=== PATIENT | female | born 1940 | race Caucasian/White ===

== ENCOUNTER 2016-09-24 07:00 | Inpatient (IN) | payer MEDICARE, BC ==
[~2016-09-24] VITALS: Ht 157.5 cm; Wt 86.9 kg
[2016-11-11 10:21] VITALS: BMI 34.3
[2016-11-12] VITALS (32 sets, daily range): BP systolic 102–198; BP diastolic 54–84; PULSE 73–112; RESP 15–26; Ht 157.5 cm; Wt 86.9 kg
[2016-11-12] MEDS ORDERED: traMADol 50 MG TAB PO ONE (06:00)
[2016-11-12] MEDS ORDERED: TRANEXAMIC ACID 1,000 MG in SOD CHLORIDE 0.9% 100 ML IVPB ONE (06:00)
[2016-11-12] MEDS: LACTATED RINGER'S 1,000 ML IV* SCH (06:00)
[2016-11-12] MEDS ORDERED: BUPIVACAINE 0.5% (SDV) 30 ML, morphine SULFATE (PF) 8 MG, EPINEPHrine 0.3 MG, KETOROLAC... IRR SCH ×7 (06:00)
[2016-11-12] MEDS ORDERED: VANCOMYCIN 1 GM (PMX) 250 ML IVPB ONE (06:00)
[2016-11-12] MEDS ORDERED: DEXAMETHASONE 1 MG TAB PO ONE (06:30)
[2016-11-12] MEDS ORDERED: GABAPENTIN 300 MG CAP PO ONE (06:30)
[2016-11-12] MEDS ORDERED: THROMBIN 5000 UNIT VIAL ONE (06:48)
[2016-11-12] MEDS ORDERED: POLYMYXIN/BACITRACIN 1L IRRIG ONE (06:49)
[2016-11-12] MEDS ORDERED: CA CHLORIDE 10% 10 ML SYRINGE ONE (06:49)
--- NOTE | 2016-11-12 06:50 | HPN ---
Date/Time of Note Date/Time of Note DATE: 11/12/16 TIME: 06:50 Interval H&P Admission Note Pt. seen H&P reviewed: No system changes JEREMIAH CURRAN MD Nov 12, 2016 06:50
[2016-11-12] MEDS ORDERED: BUPIVACAINE 0.5%/EPI (SDV) 10 ML INJ ONE (06:52)
[2016-11-12] MEDS ORDERED: ROPIVACAINE 0.5 % 30 ML VIAL ONE (06:52)
[2016-11-12] MEDS ORDERED: MIDAZOLAM 1 MG/ML 2 ML INJ ONE (06:52)
[2016-11-12] MEDS ORDERED: SUCCINYLCHOLINE CHLORIDE 100 MG/5 ML SYG IV ONE ×2 (07:00→08:45)
[2016-11-12] MEDS ORDERED: INSU100I22 SC (07:02)
[2016-11-12] MEDS ORDERED: TRUJEO (07:02)
[2016-11-12] MEDS ORDERED: ATOR40TA68 PO (07:02)
[2016-11-12] MEDS ORDERED: ZOLP5TAB PO (07:02)
[2016-11-12] MEDS ORDERED: GABA100C14 PO (07:02)
[2016-11-12] MEDS ORDERED: ASPI81TA3 PO (07:02)
[2016-11-12] MEDS ORDERED: DULO60CA59 PO (07:02)
[2016-11-12] MEDS ORDERED: DULO60CA6 PO (07:02)
[2016-11-12] MEDS ORDERED: PRAMIPEXOLE (07:02)
[2016-11-12] MEDS ORDERED: OXYCODONE/ACETAMINOPHEN (5/325) TAB PO PRN ×2 (08:00→09:00)
[2016-11-12] MEDS ORDERED: ONDANSETRON 4 MG INJ IV PRN ×2 (08:00→09:00)
[2016-11-12] MEDS ORDERED: ALBUTEROL 0.083% (NEB) 2.5 MG/3 ML AMP HHN PRN (08:00)
[2016-11-12] MEDS ORDERED: DIPHENHYDRAMINE 50 MG INJ IV PRN ×2 (08:00→09:00)
[2016-11-12] MEDS ORDERED: FENTAnyl 50 MCG/ML VIAL IV PRN ×2 (08:00)
[2016-11-12] MEDS ORDERED: METOCLOPRAMIDE 10 MG INJ IV PRN (08:00)
[2016-11-12] MEDS ORDERED: MEPERIDINE 25 MG INJ IV PRN (08:00)
[2016-11-12] MEDS ORDERED: hydrALAzine 20 MG INJ IV PRN (08:00)
[2016-11-12] MEDS ORDERED: LIDOCAINE 2% (SDV) 5 ML INJ ONE (08:45)
[2016-11-12] MEDS ORDERED: PROPOFOL 20 ML ONE (08:45)
[2016-11-12] MEDS ORDERED: ROCURONIUM 50 MG INJ ONE (08:45)
--- NOTE | 2016-11-12 08:47 | OPR ---
Date/Time of Note Date/Time of Note DATE: 11/12/16 TIME: 08:44 Operative Report Procedure Date: Nov 12, 2016 Preoperative Diagnosis Right shoulder primary arthritis Postoperative Diagnosis 1. Right shoulder primary arthritis 2. Right shoulder massive unrepairable rotator cuff tear Operation Performed Right reverse total shoulder replacement Surgeon: JEREMIAH CURRAN MD Pail Bailer: JAVIER MIKE MD Anesthesia Type: general Estimated Blood Loss: 50 - 100 ml's Transfusion Required: no Complications: no Pt Condition Post Procedure: stable Disposition: PACU Procedure Description COUNTERINTELLIGENCE ANALYST SURGEON: Javier Mike MD was asked to be present for this case at my request. Assistance was necessary as a result of the highly technical nature of this operation. When performing an open total shoulder replacement, it is critical to have a trained bakery assistant who is an expert in handling the extremity and assisting the surgeon in tasks such as suture management and knot- tying techniques as well as implants. This assistance cannot be performed by a photocopier technician, as it is considered an integral part of the procedure and the bakery assistant should be compensated for their time. PROCEDURE IN DETAIL: Following the administration of general anesthesia supplemented with a peripheral nerve block for postoperative pain control, the patient was examined under anesthesia. Examination of the right shoulder revealed very significant stiffness including a forward flexion of about 90 abduction 70 maximal external rotation 0 with severe crepitus. The patient was then placed in the beach chair position. Sterile prep and drape was then undertaken. An extended deltopectoral incision was then carried through the interval exposing the conjoined tendon and retracting it medially. The subscapularis was incised and mobilized. Severe arthritic changes were noted with very large peripheral osteophytes. Multiple loose bodies were removed from the joint. The biceps tendon was released. A humeral head osteotomy was then created in the appropriate degree of version and inclination. The humerus was retracted and the glenoid was exposed. Peripheral osteophytes were removed and a complete capsulectomy performed. The central canal of the glenoid was then entered and prepared for a size standard reverse baseplate. The baseplate was then implanted with 4 peripheral screws. A 38 mm glenoid sphere was then applied. This was a Deput component. The humerus was then reamed and prepared for a 8 mm humeral component with a standard metaphysis. The actual components were implanted with solid fixation. Joint was then taken through a full range of motion after having implanted the actual components with a 9 mm liner. Good stable component was noted throughout. The joint was then thoroughly irrigated, the deep tissues were approximated using #1 suture followed by closure of the deep layer using 2-0 Monocryl. The skin was closed using 4-0 Monocryl suture, and a Prenio dressing. An Ultrasling was then applied. The patient was awakened and transported to the recovery room in stable condition. Estimated blood loss for this procedure was 50 cc. Radiographs will be obtained in the recovery room. JEREMIAH CURRAN MD Nov 12, 2016 08:47
--- NOTE | 2016-11-12 08:48 | PDOCDIS ---
Discharge Instructions DIAGNOSIS Discharge Diagnosis Right shoulder rotator cuff tear arthropathy CONDITION Patient Condition: Good HOME CARE INSTRUCTIONS: Diet Instructions: Regular ACTIVITY: Activity Restrictions: Slowly Increase Activity Keep Limb Elevated Bathing Restrictions: Shower FOLLOW UP/APPOINTMENTS Follow-up Plan 2 weeks SCHOOL/WORK RELEASE May return to School/Work with: With Restrictions School/Work Release Comment: 5 pounds tabletop usage for 6 weeks JEREMIAH CURRAN MD Nov 12, 2016 08:48
[2016-11-12] MEDS ORDERED: VANCOMYCIN 500MG/NS (PMX) 100 ML IVPB SCH (09:00)
[2016-11-12] MEDS ORDERED: morphine 2 MG INJ IV PRN (09:00)
[2016-11-12] MEDS ORDERED: morphine 4 MG/ML VIAL IV PRN (09:00)
[2016-11-12] MEDS ORDERED: ZOLPIDEM 5 MG TAB PO PRN ×2 (09:00)
[2016-11-12] MEDS ORDERED: TRANEXAMIC ACID 1,000 MG in SOD CHLORIDE 0.9% 100 ML IV ONE (09:00)
[2016-11-12] MEDS ORDERED: KETOROLAC 15 MG INJ IV PRN (09:00)
[2016-11-12] MEDS ORDERED: ACETAMINOPHEN 500 MG TAB PO PRN (09:00)
[2016-11-12] MEDS ORDERED: INSULIN REGULAR (1 UNIT/ML) SYRINGE IV PRN (09:00)
[2016-11-12] MEDS ORDERED: MAGNESIUM HYDROXIDE 30ML CUP PO PRN (09:00)
[2016-11-12] MEDS ORDERED: SUGAMMADEX SODIUM 200 MG/2 ML VIAL IV ONE (09:01)
--- NOTE | 2016-11-12 10:17 | RADRPT ---
PROCEDURE: XR Right Shoulder CLINICAL INDICATION: Status post total shoulder TECHNIQUE: An AP and a Y-view were submitted. COMPARISON: None FINDINGS: Osseous structures: A reverse total right shoulder replacement is evident and the components appear well seated. The osseous elements otherwise appear intact. Joint spaces: The glenohumeral joint appears unremarkable. Mild degenerative changes seen about the AC joint. Soft tissues: Postop subcutaneous air is evident. IMPRESSION: 1. Well seated reversed total right shoulder replacement. 2. Mild degenerative change seen about the right AC joint. Physician Юлия Date Time Electronically viewed and signed by Physician Юлия on 11/12/2016 10:17 RH/
[2016-11-12] MEDS: Insulin NOVOLOG SS MODERATE Algorithm (SS with meals and bedtime) SC SCH ×3 (10:58→20:34)
[2016-11-12 12:00] LABS: AADO2 Arterial 159.5 mmHg (7.0-24.0); Allen Test ACCEPTAB; Arterial Base Excess -4.5 mmol/L (-3.0-3); Arterial COHb 0 % (0.0-3.0); Arterial Fraction of Oxyhgb 92.6 % (93.0-99.0); Arterial HCO3 21.6 mmol/L (22.0-26.0); Arterial MetHb 0.4 % (0.0-1.5); Arterial Total Hemglobin 14.2 g/dl (12.0-18.0); MODE NASAL CANNULA
[2016-11-12] MEDS ORDERED: ALBUTEROL/IPRATROPIUM (NEB) 3 ML AMP HHN PRN (12:00)
--- NOTE | 2016-11-12 12:33 | RADRPT ---
PROCEDURE: Chest 1 views. CLINICAL INDICATION: Shortness of breath. TECHNIQUE: AP views of the chest was obtained. COMPARISON: None. FINDINGS: The heart is large. The patient's right hand overlies the right lower chest. The lungs are hypoinfla karissa. Retrocardiac opacity is identified. Elevated right hemidiaphragm with associated atelectasis/co nsolidation of the right middle and lower lobes is identified. Diffuse interstitial prominence is se en in both lungs. The osseous structures appear grossly intact. Right shoulder replacement is noted . IMPRESSION: Cardiomegaly . Hypoinflated lungs. Retrocardiac opacity that may reflect left lower lobe atelectasis or infiltrate combined with small to moderate pleural effusion. Elevated right hemidiaphragm with associated atelectasis/consolidation of the right middle and lower lobes. Diffuse mild interstitial prominence in both lungs. Interstitial prominence could be chronic. RPTAT: AA .Clay Browning MD, Date Time Electronically viewed and signed by .Clay Browning MD, on 11/12/2016 12:33 .P/
[2016-11-12] MEDS: GABAPENTIN 100 MG CAP PO SCH ×3 (13:00→20:32)
[2016-11-12] MEDS: DULOXETINE 30 MG CAP DR PO SCH (13:34)
[2016-11-12] MEDS: SENNA/DOCUSATE NA (8.6MG/50MG) TAB PO SCH ×2 (13:35→20:32)
[2016-11-12] MEDS: DEXAMETHASONE 2 MG TAB PO SCH ×2 (13:35→17:32)
[2016-11-12] MEDS ORDERED: DEXTROSE 50% 50 ML SYRINGE IV PRN ×2 (16:00)
[2016-11-12] MEDS ORDERED: GLUCAGON 1 MG INJ IM PRN (16:00)
[2016-11-12] MEDS ORDERED: GLUCOSE GEL 15 GRAM TUBE PO PRN ×2 (16:00)
[2016-11-12] MEDS ORDERED: GLUCOSE GEL 15 GRAM TUBE BUCCAL PRN (16:00)
[2016-11-12] MEDS: OXYCODONE/ACETAMINOPHEN (5/325) TAB PO PRN (17:43)
[2016-11-12] MEDS: VANCOMYCIN 500MG/NS (PMX) 100 ML IVPB SCH (19:00)
[2016-11-12] MEDS ORDERED: INSULIN ASPART [NOVOLOG] 3 ML PEN SC ONE (21:00)
[2016-11-12] MEDS ORDERED: GABAPENTIN 300 MG CAP PO SCH (21:00)
[2016-11-12] MEDS ORDERED: ATORVASTATIN 10 MG TAB PO SCH (21:00)
[2016-11-12] MEDS ORDERED: INSULIN GLARGINE [LANtus] 3 ML PEN SC SCH (22:00)
[2016-11-13] MEDS: DEXAMETHASONE 2 MG TAB PO SCH ×2 (00:14→06:13)
[2016-11-13] MEDS: OXYCODONE/ACETAMINOPHEN (5/325) TAB PO PRN ×3 (00:28→12:34)
[2016-11-13] MEDS: LACTATED RINGER'S 1,000 ML IV* SCH (05:32)
[2016-11-13] MEDS: VANCOMYCIN 500MG/NS (PMX) 100 ML IVPB SCH (06:13)
--- NOTE | 2016-11-13 07:01 | PN ---
Date/Time of Note Date/Time of Note DATE: 11/13/16 TIME: 06:59 24 hour Interval Summary Patient is awake and alert with minimal complaints. He is breathing comfortably. She does not have her nasal cannula in place. Physical Exam Physical examination: She is neurologically intact. Her wound is clean and dry. There is minimal edema. There is some ecchymoses. Vital Signs Date Time Temp Pulse Resp B/P Pulse Ox O2 Delivery O2 Flow Rate FiO2 11/12/16 22:00 Nasal Cannula 4.0 11/12/16 21:41 97.9 80 20 115/81 93 Intake and Output 11/12/16 11/12/16 11/13/16 15:00 23:00 07:00 Intake Total 500 ml 580 ml 440 ml Output Total 10 ml Balance 490 ml 580 ml 440 ml VTE Prophylaxis VTE Prophylaxis Intervention: anti-embolic stocking Lines/Catheters IV Catheter Type: Saline Lock Yeung in Place: No Results Results 24hrs Laboratory Tests Test 11/12/16 10:00 11/12/16 11:36 11/12/16 11:41 11/12/16 17:31 Bedside Glucose 258 H 247 H 268 H Blood Gas Specimen Source Blood arterial Arterial Blood Date Drawn 11/12/2016 11:45:09 AM Arterial Blood pH (Temp corrected) 7.313 L Arterial Blood pCO2 (Temp correct) 43.6 Arterial Blood pO2 (Temp corrected) 68.3 L Arterial Blood HCO3 21.6 L Arterial Blood Base Excess -4.5 L Arterial Blood Oxygen Saturation 93.0 L Alexis Test ACCEPTAB Arterial Blood Gas Puncture Site Left Radial Arterial Blood Carboxyhemoglobin 0 Arterial Blood Methemoglobin 0.4 Blood Gas A-a O2 Differential 159.5 H Oxyhemoglobin Percent 92.6 L Total Hemoglobin 14.2 Blood Gas Temperature 37.0 Blood Gas Modality NASAL CANNULA FiO2 39.0 Blood Gas Notified Whom JLD Blood Gas Notified Time 11/12/2016 12:00:49 PM Test 11/12/16 20:28 11/12/16 23:51 11/13/16 04:34 Bedside Glucose 384 H 355 H 270 H Assessment/Plan Assessment/Plan Assessment: Status post reverse total shoulder with good result thus far. She appears to have resolved her breathing issues that she had immediately postoperatively. Most of those were anxiety. Plan: She will do physical therapy this morning. She will be discharged following therapy. Medications Medications Home Meds Reported Medications Duloxetine Hcl* (Duloxetine Hcl*) 60 Mg Capsule.dr, 60 MG PO DAILY, #30 CAP 11/12/16 [pranpexole] No Conflict Check, 0.125 QHS 11/12/16 [trujeo] No Conflict Check, 300 11/12/16 Insulin Aspart (Novolog FlexPen) 100 Unit/1 Ml Insuln.pen, 100 SC SLIDING SCALE AC, EA 11/12/16 Gabapentin* (Gabapentin*) 100 Mg Capsule, 100 MG PO TID, #90 CAP 11/12/16 Duloxetine Hcl* (Cymbalta*) 60 Mg Capsule.dr, 60 MG PO DAILY, CAP 11/12/16 Atorvastatin* (Atorvastatin*) 40 Mg Tablet, 10 MG PO QHS, #30 TAB 11/12/16 Aspirin* (Aspirin* Chew) 81 Mg Tab.chew, 81 MG PO DAILY, TAB.CHEW 11/12/16 Zolpidem Tartrate* (Ambien*) 5 Mg Tablet, 5 MG PO QHS Y for INSOMNIA, #30 TAB 11/12/16 JEREMIAH CURRAN MD Nov 13, 2016 07:01
--- NOTE | 2016-11-13 07:02 | DS ---
Date/Time of Note Date/Time of Note DATE: 11/13/16 TIME: 07:01 Discharge Summary Admission/Discharge Info Admit Date/Time Nov 12, 2016 at 05:53 Discharge Date/Time November 13, 2016 following physical therapy Discharge Diagnosis Right shoulder rotator cuff tear arthropathy Patient Condition: Good Procedures Right reverse total shoulder replacement Hx of Present Illness Pain and stiffness in the right shoulder. Hospital Course Patient was admitted and underwent an uncomplicated procedure. Approximately 1 hour postoperatively, she developed some acute anxiety with difficulty breathing. A rapid response team was called. Assessment later revealed no significant abnormalities. On postoperative day #1 she is awake, alert and comfortably breathing. She is in minimal pain. She was then taken to physical therapy. She was discharged following the physical therapy area Home Meds Reported Medications Duloxetine Hcl* (Duloxetine Hcl*) 60 Mg Capsule.dr, 60 MG PO DAILY, #30 CAP 11/12/16 [pranpexole] No Conflict Check, 0.125 QHS 11/12/16 [trujeo] No Conflict Check, 300 11/12/16 Insulin Aspart (Novolog FlexPen) 100 Unit/1 Ml Insuln.pen, 100 SC SLIDING SCALE AC, EA 11/12/16 Gabapentin* (Gabapentin*) 100 Mg Capsule, 100 MG PO TID, #90 CAP 11/12/16 Duloxetine Hcl* (Cymbalta*) 60 Mg Capsule.dr, 60 MG PO DAILY, CAP 11/12/16 Atorvastatin* (Atorvastatin*) 40 Mg Tablet, 10 MG PO QHS, #30 TAB 11/12/16 Aspirin* (Aspirin* Chew) 81 Mg Tab.chew, 81 MG PO DAILY, TAB.CHEW 11/12/16 Zolpidem Tartrate* (Ambien*) 5 Mg Tablet, 5 MG PO QHS Y for INSOMNIA, #30 TAB 11/12/16 Follow-up Plan 2 weeks Primary Care Provider Not On Staff Doctor Pending Labs Laboratory Tests Test 11/12/16 10:00 11/12/16 11:36 11/12/16 11:41 11/12/16 17:31 Bedside Glucose 258mg/dL (70-220) 247mg/dL (70-220) 268mg/dL (70-220) Blood Gas Specimen Source Blood arterial Arterial Blood Date Drawn 11/12/2016 11:45:09 AM Arterial Blood pH (Temp corrected) 7.313 (7.350-7.450) Arterial Blood pCO2 (Temp correct) 43.6mmhg (35-45) Arterial Blood pO2 (Temp corrected) 68.3mmHG (80-90.0) Arterial Blood HCO3 21.6mmol/L (22.0-26.0) Arterial Blood Base Excess -4.5mmol/L (-3.0-3) Arterial Blood Oxygen Saturation 93.0mmHG (95.0-100.0) Alexis Test ACCEPTAB Arterial Blood Gas Puncture Site Left Radial Arterial Blood Carboxyhemoglobin 0% (0.0-3.0) Arterial Blood Methemoglobin 0.4% (0.0-1.5) Blood Gas A-a O2 Differential 159.5mmHg (7.0-24.0) Oxyhemoglobin Percent 92.6% (93.0-99.0) Total Hemoglobin 14.2g/dl (12.0-18.0) Blood Gas Temperature 37.0C Blood Gas Modality NASAL CANNULA FiO2 39.0% Blood Gas Notified Whom JLD Blood Gas Notified Time 11/12/2016 12:00:49 PM Test 11/12/16 20:28 11/12/16 23:51 11/13/16 04:34 Bedside Glucose 384mg/dL (70-220) 355mg/dL (70-220) 270mg/dL (70-220) JEREMIAH CURRAN MD Nov 13, 2016 07:02
[2016-11-13 07:58] VITALS: BP 138/68; RESP 18
[2016-11-13] MEDS: Insulin NOVOLOG SS MODERATE Algorithm (SS with meals and bedtime) SC SCH ×2 (09:00→12:45)
[2016-11-13] MEDS ORDERED: ASPIRIN 81 MG TAB PO SCH (09:00)
[2016-11-13] MEDS: SENNA/DOCUSATE NA (8.6MG/50MG) TAB PO SCH (09:01)
[2016-11-13] MEDS: GABAPENTIN 100 MG CAP PO SCH ×2 (09:01→12:33)
[2016-11-13] MEDS: DULOXETINE 30 MG CAP DR PO SCH (09:01)
[2016-11-13 14:45] VITALS: BP 135/64; RESP 17
--- NOTE | 2016-11-13 20:16 | RADRPT ---
Vent Rate: 85 bpm RR Interval: 0 msec OK Interval: 196 msec QRS Duration: 112 msec QT Interval: 402 msec QTC Interval: 478 msec P-R-T [place]: 31 - -54 - 50 degrees Normal sinus rhythm Left anterior fascicular block Possible Anterior infarct , age undetermined Abnormal ECG Electronically Signed By: Rafat Rosario [id number]
== END 2016-11-13 16:41 | disposition home or self-care (01) | DRG 483 ==
LOC: REC 11-12 05:53 → MS1 11-12 10:30
PROVIDERS: ADMIT Orthopaedic Surgery; ATTEND Orthopaedic Surgery
PROC: 0RRJ00Z Replacement of Right Shoulder Joint with Reverse Ball and Socket Synthetic Substitute, Open Approach (ICD-10-PCS; principal; 2016-11-12 07:00)
DX: M19.011 Primary osteoarthritis, right shoulder (principal); F41.9 Anxiety disorder, unspecified; M75.101 Unspecified rotator cuff tear or rupture of right shoulder, not specified as traumatic; R06.4 Hyperventilation
CPT/HCPCS: 36600; 71010; 82803; 82962; 86999; 88304; 93005; 94640; 94664; 97110; 97167; C1776; J0171; J0735; J1815; J1885; J2250; J2274; J2795; J3010; J3370; J7120; J7999

== ENCOUNTER 2017-02-04 10:01 | Inpatient (IN) | payer MEDICARE, BC ==
[2017-02-04] VITALS (42 sets, daily range): BP systolic 97–178; BP diastolic 53–132; PULSE 87–124; RESP 14–39; Ht 157.5 cm; Wt 84.2 kg
[~2017-02-04] VITALS: Ht 157.5 cm; Wt 84.2 kg
--- NOTE | 2017-02-04 06:13 | PREOPHP ---
DATE OF ADMISSION: 02/04/2017 STAFF PHYSICIAN DOING SURGERY FOR PATIENT TOMORROW: Dr. Jeremiah Curran DATE OF SURGERY: 02/04/2017 LOCATION: Surgery will be performed at [facility] HISTORY OF PRESENT ILLNESS: The patient is a 76-year-old woman with a history of type 2 diabetes, h ypertension, hyperlipidemia, fibromyalgia, osteoarthritis and neuropathy, who is now scheduled for r evision, right shoulder surgery with Dr. Jeremiah Curran at [facility] on 08/2016. Patient has had prior right shoulder surgery, recently she has had fairly severe pain and recurrent dislocations of her shoulder, according to the patient. She has been very uncomfortable a nd recently saw Dr. Curran, who has urgently scheduled her for the surgical revision tomorrow, whic h will be done open. She has already had cardiology and pulmonary clearance, including EKG and ches t x-ray. Unfortunately, she has had poorly controlled diabetes with her blood sugars mainly running 180 to 280, and she has not been compliant with her insulin regimen. She has been taking just 30 u nits of her long-acting insulin and 10 to 12 units twice a day of her Humalog. She has had occasion al polyuria and polydipsia, but no hypoglycemia. She denies earache, sore throat, productive cough, nausea, vomiting, abdominal pain, fever and chills, focal weakness and numbness. PAST MEDICAL HISTORY: 1. Type 2 diabetes mellitus. 2. Hypertension. 3. Hyperlipidemia. 4. Fibromyalgia. 5. Osteoarthritis. 6. History of anemia. 7. Neuropathy. 8. History of low back pain. 9. Previous right shoulder surgery. CURRENT MEDICATIONS: 1. Atorvastatin 10 mg daily. 2. Duloxetine 60 mg daily. 3. Gabapentin 100 mg, 4 tablets at bedtime, each tablet 100 mg. 4. Metformin 500 mg, 2 twice a day. 5. Verapamil extended release 180 mg twice a day. 6. Januvia 100 mg daily. 7. Zolpidem 10 mg, a half to 1 at bedtime as needed. 8. Toujeo insulin 36 units at bedtime. 9. Mirapex 0.125 mg at bedtime. 10. Oxycodone 10 mg b.i.d. as needed for severe pain. ALLERGIES: PENICILLIN. HABITS: Cigarettes: She is a former smoker, but is not smoking currently. Alcohol: None. FAMILY HISTORY: Noncontributory. SOCIAL HISTORY: She lives in [place]. REVIEW OF SYSTEMS: CONSTITUTIONAL: She denies weight change, fevers, chills and sweats. SKIN: She denies hair and nail changes, new lesions, pruritus and rash. EYES: She denies vision change, eye pain or redness. HEENT: She denies earache, hearing change, sore throat, hoarseness, sinus pain and dysphagia. RESPIRATORY: She denies wheezing, cough, shortness of breath and hemoptysis. CARDIOVASCULAR: She denies chest pain, palpitations, orthopnea and PND. GASTROINTESTINAL: She denies constipation, diarrhea, reflux symptoms, hematochezia, melena, nausea and vomiting. GENITOURINARY: She denies dysuria and hematuria, and urinary urgency and frequency. MUSCULOSKELETAL: She has the right shoulder pain. She denies current back pain and ankle swelling. PSYCHIATRIC: She denies panic attacks. ENDOCRINE: She denies heat and cold intolerance. NEUROLOGIC: She has some decreased lower extremity sensation. She denies dizziness, headache, seiz ures and tremor. HEMATOLOGIC: She denies enlarged lymph nodes and bleeding problems. PHYSICAL EXAMINATION: GENERAL: She is in no acute distress. VITAL SIGNS: Blood pressure 138/64, pulse 78, respirations 16, temperature 98.4. Height 62 inches, weight 185.6 lbs. HEENT: Normocephalic, atraumatic. No facial tenderness. Pupils reactive to light. Extraocular mo vements intact. Tympanic membranes and ear canals normal. Nose normal. Throat clear. NECK: Supple without adenopathy or thyromegaly. No carotid bruits. LUNGS: Clear. HEART: Regular rate and rhythm without murmurs, rubs or gallops. BACK: No tenderness. ABDOMEN: Soft, nontender without mass or hepatosplenomegaly. Bowel sounds are normal. BREASTS: Done by her neurology epilepsy physician and not repeated today. PELVIC: Done by her neurology epilepsy physician and not repeated today. RECTAL: Done by her neurology epilepsy physician and not repeated today. EXTREMITIES: Trace lower extremity edema. There is some right shoulder tenderness and decreased ra nge of motion. Pulses are full. SKIN: Shows no rashes or petechiae. NEUROLOGIC: Nonfocal except for decreased distal lower extremity sensation. IMPRESSION: 1. Right shoulder pain with apparent recurrent dislocations, now scheduled for revision surgery wit h Dr. Curran at [facility] on 02/04/2017. 2. Type 2 diabetes mellitus with poor control. 3. Hyperlipidemia. 4. Hypertension. 5. Osteoarthritis. 6. Insomnia. 7. Fibromyalgia. 8. History of low back pain and intervertebral disc disease. 9. Vitamin D deficiency. 10. History of right shoulder surgery. 11. Nonfasting Accu-Chek currently is 272. PLAN: The patient had labwork earlier today, which showed glucose of 278 and carbon dioxide of 32, otherwise it was essentially normal. The patient is at higher risk of infections and poor healing, but because of the urgent nature of the surgery, she is medically cleared for the scheduled procedur e, and she is aware of the increased risks and chooses to accept them. Patient should have her bloo d sugars monitored at the hospital and be treated with both long-acting insulin and a short-acting i nsulin sliding scale. I would like to thank Dr. Curran for allowing me to participate in the preoperative medical evaluat ion of this patient. DR. YOSI MORAN DICTATING FOR DR. JEREMIAH CURRAN Dictated By: JEREMIAH CURRAN MD CG/NTS Conf#: [id number] DID#: [id number] CC: JEREMIAH CURRAN MD; YOSI MORAN MD;*[facility]*
[~2017-02-04 10:01] MED LIST: ASPI81TA3 PO; ATOR40TA68 PO; BUPIVACAINE 0.5% (SDV) 30 ML, morphine SULFATE (PF) 8 MG, EPINEPHrine 0.3 MG, KETOROLAC... IRR SCH; DEXAMETHASONE 1 MG TAB PO SCH; DULO60CA59 PO; DULO60CA6 PO; GABA100C14 PO; GABAPENTIN 300 MG CAP PO SCH; INSU100I22 SC; PRAMIPEXOLE; TRANEXAMIC ACID 1,000 MG in SOD CHLORIDE 0.9% 100 ML IVPB SCH; TRUJEO; VANCOMYCIN 1 GM (PMX) 250 ML IVPB SCH; ZOLP5TAB PO
--- NOTE | 2017-02-04 10:37 | HPN ---
Date/Time of Note Date/Time of Note DATE: 02/04/17 TIME: 10:36 Interval H&P Admission Note Pt. seen H&P reviewed: No system changes JEREMIAH CURRAN MD Feb 04, 2017 10:37
[2017-02-04] MEDS ORDERED: ZOLP10TA5 PO (10:45)
[2017-02-04] MEDS ORDERED: ATOR10TA65 PO (10:47)
[2017-02-04] MEDS ORDERED: INSU300I SQ (10:49)
[2017-02-04] MEDS ORDERED: NOVO3I SC (10:50)
[2017-02-04] MEDS ORDERED: OXYC-203 PO (10:51)
[2017-02-04] MEDS ORDERED: VERA180T6 PO (10:51)
[2017-02-04] MEDS ORDERED: GABA100C14 PO (10:52)
[2017-02-04] MEDS ORDERED: PRAM0.12 PO (10:53)
[2017-02-04] MEDS ORDERED: CETI-240 PO (10:53)
[2017-02-04] MEDS ORDERED: CHOL20002 PO (10:54)
[2017-02-04] MEDS ORDERED: CYAN500T46 PO (10:54)
[2017-02-04] MEDS ORDERED: LIDOCAINE 2% (SDV) 5 ML INJ ONE (11:12)
[2017-02-04] MEDS ORDERED: PROPOFOL 20 ML ONE ×3 (11:12→15:15)
[2017-02-04] MEDS ORDERED: ROPIVACAINE 0.5 % 30 ML VIAL ONE (11:13)
[2017-02-04] MEDS ORDERED: MIDAZOLAM 1 MG/ML 2 ML INJ ONE ×2 (11:14→14:36)
[2017-02-04] MEDS ORDERED: ONDANSETRON 4 MG INJ ONE (11:14)
[2017-02-04] MEDS ORDERED: METOCLOPRAMIDE 10 MG INJ ONE (11:14)
[2017-02-04] MEDS ORDERED: POLYMYXIN/BACITRACIN 1L IRRIG ONE (12:13)
[2017-02-04] MEDS ORDERED: THROMBIN 5000 UNIT VIAL ONE (12:13)
[2017-02-04] MEDS ORDERED: CA CHLORIDE 10% 10 ML SYRINGE ONE (12:13)
[2017-02-04] MEDS ORDERED: DEXAMETHASONE 4 MG/ML 1 ML INJ ONE (13:57)
--- NOTE | 2017-02-04 14:10 | OPR ---
Date/Time of Note Date/Time of Note DATE: 02/04/17 TIME: 14:06 Operative Report Procedure Date: Feb 04, 2017 Preoperative Diagnosis Dislocated right reverse total shoulder Postoperative Diagnosis Dislocated right reverse total shoulder Operation/Procedure Performed Revision of humeral component, right reverse total shoulder Surgeon see signature line Industry Segment Specialist Willy Sellers MD Anesthesia Type: general Estimated Blood Loss: 50 - 100 ml's Transfusion none Specimen None Grafts/Implants none Complications none Pt Condition Post Procedure: stable Disposition: PACU Indications The patient has a history of having undergone a reverse total shoulder replacement with cerebral dislocation episodes after having fallen out of bed multiple times immediately postoperatively. Procedure Description DRY HOUSE ATTENDANT SURGEON: Willy Sellers was asked to be present for this case at my request. Assistance was necessary as a result of the highly technical nature of this operation. When performing an open total shoulder replacement, it is critical to have a trained customer assistant who is an expert in handling the extremity and assisting the surgeon in tasks such as manipulation of the arm, protection of the neurovascular structures and positioning the implants. This assistance cannot be performed by a civil technician, as it is considered an integral part of the procedure and the customer assistant should be compensated for their time. PROCEDURE IN DETAIL: Following the administration of general anesthesia supplemented with a peripheral nerve block for postoperative pain control, the patient was examined under anesthesia. Examination revealed that she was very easily dislocated anterosuperiorly and easily reducible. The prior deltopectoral incision was then opened once again and the deltoid retracted laterally. The deltoid was elevated and the humeral component dislocated. Evaluation of the humeral component revealed that there was no evident loosening or malrotation. The liner was removed and subsequently a trial reduction was then performed with multiple increasing elements. The final components included a 9 mm metal investor relations associate as well as a 9 mm liner. The actual components were implanted with solid fixation. The arm was taken through full range of motion with no evident instability. The joint was then thoroughly irrigated, the deep tissues were approximated using #1 suture followed by closure of the deep layer using 2-0 Monocryl. The skin was closed using 4-0 Monocryl suture, and a Prenio dressing. An Ultrasling was then applied. The patient was awakened and transported to the recovery room in stable condition. Estimated blood loss for this procedure was 100 cc. Radiographs will be obtained in the recovery room. JEREMIAH CURRAN MD Feb 04, 2017 14:10
--- NOTE | 2017-02-04 14:11 | PDOCDIS ---
Discharge Instructions DIAGNOSIS Discharge Diagnosis Failed right reverse total shoulder replacement CONDITION Patient Condition: Good HOME CARE INSTRUCTIONS: Diet Instructions: Regular ACTIVITY: Activity Restrictions: No Restrictions Keep Limb Elevated FOLLOW UP/APPOINTMENTS Follow-up Plan 2 weeks SCHOOL/WORK RELEASE May return to School/Work with: With Restrictions School/Work Release Comment: 5 pounds tabletop usage for 6 weeks JEREMIAH CURRAN MD Feb 04, 2017 14:11
[2017-02-04] MEDS ORDERED: ALBUTEROL 0.083% (NEB) 2.5 MG/3 ML AMP ONE (14:26)
[2017-02-04] MEDS ORDERED: KETOROLAC 15 MG INJ IV PRN (14:30)
[2017-02-04] MEDS ORDERED: ONDANSETRON 4 MG INJ IV PRN ×2 (14:30→15:00)
[2017-02-04] MEDS ORDERED: MAGNESIUM HYDROXIDE 30ML CUP PO PRN (14:30)
[2017-02-04] MEDS ORDERED: ACETAMINOPHEN 500 MG TAB PO PRN (14:30)
[2017-02-04] MEDS ORDERED: TRANEXAMIC ACID 1,000 MG in SOD CHLORIDE 0.9% 100 ML IV ONE (14:30)
[2017-02-04] MEDS ORDERED: morphine 2 MG INJ IV PRN (14:30)
[2017-02-04] MEDS ORDERED: DIPHENHYDRAMINE 50 MG INJ IV PRN ×2 (14:30→15:00)
[2017-02-04] MEDS ORDERED: LORAZEPAM 2 MG INJ ONE (14:45)
[2017-02-04] MEDS ORDERED: SUCCINYLCHOLINE CHLORIDE 100 MG/5 ML SYG IV ONE (14:56)
[2017-02-04] MEDS ORDERED: HYDROmorphONE (0.2 MG/ML) 10ML SYG IV PRN ×3 (15:00)
[2017-02-04] MEDS ORDERED: MEPERIDINE 25 MG INJ IV PRN (15:00)
[2017-02-04] MEDS ORDERED: FENTAnyl 50 MCG/ML VIAL IV PRN ×3 (15:00)
[2017-02-04] MEDS ORDERED: EPHEDrine SULFATE 50 MG/5 ML SYG IV PRN (15:00)
[2017-02-04] MEDS ORDERED: ALBUTEROL 0.083% (NEB) 2.5 MG/3 ML AMP HHN PRN (15:00)
[2017-02-04] MEDS ORDERED: hydrALAzine 20 MG INJ IV PRN (15:00)
[2017-02-04] MEDS ORDERED: LORAZEPAM 2 MG INJ IV ONE (15:00)
[2017-02-04] MEDS ORDERED: MIDAZOLAM 1 MG/ML 2 ML INJ IV PRN (15:00)
[2017-02-04] MEDS ORDERED: LABETALOL HCL 20MG INJ IV PRN (15:00)
--- NOTE | 2017-02-04 15:24 | RADRPT ---
PROCEDURE: XR right shoulder. CLINICAL INDICATION: Shoulder pain, replacement TECHNIQUE: Single AP view of the shoulder was performed. COMPARISON: 11/12/2016 FINDINGS: The patient is again noted to be status post reverse total shoulder arthroplasty. The prosthesis samantha ears to be anatomically aligned and well seated. There are normal joints without evidence of arthritis or dislocation. The soft tissues are unremarkable. IMPRESSION: Well seated reverse total shoulder arthroplasty. RPTAT:AAJJ Physician Meche Date Time Electronically viewed and signed by Israel Goss Physician on 02/04/2017 15:24 HEBERT/
--- NOTE | 2017-02-04 15:26 | OPPN ---
Date/Time of Note Date/Time of Note DATE: 02/04/17 TIME: 15:13 Event Note The patient had history of respiratory distress postoperatively in the last surgery. At the end of this surgery, breathing treatment was given immediately at the arrival to the PACU. However, the patient still developed respiratory distress. She was breathing heavily and became restless. To prevent the patient from respiratory failure, she was induced with 100mg of propofol and 100 mg of succinylcholine, and intubated with 7.0 ETT. Artificial ventilation was initiated. The patient became stable after the management. ANUM KNIGHT MD Feb 04, 2017 15:25
[2017-02-04] MEDS: PROPOFOL 100 ML IV SCH ×2 (16:00→22:41)
[2017-02-04] MEDS ORDERED: MIDAZOLAM (DRIP) 50 mg/50 mL 50 ML IV SCH (16:00)
--- NOTE | 2017-02-04 16:07 | RADRPT ---
PROCEDURE: Chest x-ray CLINICAL INDICATION: Intubation TECHNIQUE: Chest single view COMPARISON: 11/12/2016 FINDINGS: There is interval placement of endotracheal tube which terminates 2.5 cm above the emmie. Stable mi ld cardiomegaly and atherosclerotic aortic calcification is seen. Pulmonary vessels are normal in ca liber. There are low lung volumes with linear bibasilar atelectasis. No large pleural fluid is seen. There is right shoulder prosthesis. IMPRESSION: 1. Interval placement of endotracheal tube which terminates 2.5 cm above the emmie. 2. Stable mild cardiomegaly and atherosclerotic aortic calcification. 3. Low lung volumes with by bilateral lower lobe atelectasis RPTAT: HH .Alfredo Cote MD, MD Date Time Electronically viewed and signed by .Alfredo Cote MD, on 02/04/2017 16:07 .W/
[2017-02-04] MEDS: VANCOMYCIN 500MG/NS (PMX) 100 ML IVPB SCH (16:54)
[2017-02-04] MEDS ORDERED: DEXTROSE 50% 50 ML SYRINGE IV PRN ×2 (17:30)
[2017-02-04] MEDS ORDERED: INSULIN ASPART [NOVOLOG] 3 ML PEN SC SCH (17:35)
[2017-02-04] MEDS ORDERED: DEXAMETHASONE 2 MG TAB PO SCH (18:00)
[2017-02-04] MEDS: D5W-0.45 NACL + KCL 20 MEQ 1,000 ML IV SCH (18:09)
--- NOTE | 2017-02-04 18:15 | CONS ---
Date/Time of Note Date/Time of Note DATE: 02/04/17 TIME: 17:58 Assessment/Plan Assessment/Plan Problems: (1) Status post reverse arthroplasty of right shoulder Status: Acute Comment: Agitated post-operatively (see below). Will attempt to keep pt. calm and sedated so as to keep shoulder immobilized. Fall precautions. Pain control. Will follow with you. (2) Type 2 diabetes mellitus with hyperglycemia Status: Chronic Comment: Pt. intubated in ICU. Therefore will treat with insulin drip for now. Transition to sq insulin later. Check A1c. Pt. will need larger insulin doses while receiving dexamethasone first 24 hours. Qualifiers: Qualified Code: E11.65 - Type 2 diabetes mellitus with hyperglycemia, with long-term current use of insulin (3) Essential (primary) hypertension Status: Chronic Comment: Cont. calcium channel blockade (4) Hyperlipidemia Status: Chronic Comment: Cont. atorvastatin (5) Allergic rhinitis Status: Chronic Comment: cont. antihistamine (6) Chronic pain disorder Status: Chronic Comment: Cont. gabapentin, duloxetine. Pt. receiving IV narcotics at this time and will be weaned to oral narcotics when stable (7) Restless leg syndrome Status: Chronic Comment: Cont. mirapex (8) Fibromyalgia Status: Chronic Comment: Cont. duloxetine and gabapentin (9) Restlessness and agitation Status: Acute Comment: Possible reaction to sedation or narcotics. Pt. has had this with multiple surgical procedures in the past. Will monitor. (10) Mechanical complic of internal orthopedic device, implant or graft Status: Resolved Cont'd Hospitalization Reason: Pt. to stay in ICU until sedation and intubation no longer required Consultation Date/Type/Reason Admit Date/Time Feb 04, 2017 at 10:01 Date of Consultation: Feb 04, 2017 Type of Consultation: Medicine-Endocrinology Reason for Consultation Medical/Diabetes management Referring Provider: JEREMIAH CURRAN MD Hx of Present Illness 76 y/o C F w/ h/o T2DM w/ neuropathy, HTN, hyperlipidemia, chronic pain, fibromyalgia, allergic rhinitis, restless leg syndrome, and OA s/p total shoulder replacement due to unreducible dislocation. However, post-operatively pt. had significant agitation, and fell from bed more than once. It is assumed that one of these caused failure of replacement and pt. has been having pain and recurrent dislocations since then. Pt. was scheduled for urgent revision of this and is now POD#0 from her procedure. Agitated and w/ resp. distress post-op and required ongoing intubation and breathing treatments. Subjective hx not possible: pt non-verbal, pt critical status Past Medical History Medical History: diabetes, high cholesterol, hypertension, other (allergic rhinitis, chronic pain, fibromyalgia, OA) Past Surgical History Past Surgical Hx: other (R total shoulder, B Total Knee, fundoplication, MARIAN, L ulnar n. decompression) Family History Significant Family History: heart disease (father, mother), hypertension ( father), vascular disease (CVA in father and uncle) Social History b. [employer], raised [place] until age 9 y, then moved to [facility], some college, ret'd real estate office supervisor, , 2 children Alcohol Use: none Smoking Status: Former smoker (1 ppd x 10-12 y, quit 45 y. ago) Drug Use: none Exam/Review of Systems Vital Signs Vitals Vital Signs Date Time Temp Pulse Resp B/P Pulse Ox O2 Delivery O2 Flow Rate FiO2 02/04/17 17:36 119 26 99 40 02/04/17 17:15 152/101 Mechanical Ventilator 02/04/17 15:08 10.0 02/04/17 14:39 98.6 Exam Constitutional: distress (agitated), non-verbal, obese, No alert, No oriented Eyes: EOMI, PERRL, nl conjunctiva, nl lids, nl sclera ENMT: intubated Neck: non-tender, supple, No bruits, No masses, No thyromegaly Respiratory: clear to auscultation, normal air movement Cardiovascular: nl pulses, regular rate and rhythm, No edema, No murmurs/extra sounds, No rub Gastrointestinal: bowel sounds, nl liver, spleen, non-tender, soft, No mass, No rebound or guarding Musculoskeletal: No nl extremities to inspection (R shoulder w/ fresh wound) Extremities: normal pulses, No clubbing, No cyanosis, No edema Neurological: confused Results Results 24 hrs Laboratory Tests Test 02/04/17 10:50 Bedside Glucose 180 Medications Medications Current Medications Vancomycin HCl (Vancocin) 100 ml @ 100 mls/hr Q12H IVPB Last administered on 02/04/17t 16:54; Admin Dose 100 MLS/HR; Start 02/04/17 at 16:30; Stop 02/05/17 at 05:29 Senna/Docusate Sodium (Senokot-S) 1 tab BID PO ; Start 02/04/17 at 21:00 Simethicone (Mylicon) 80 mg TID PRN PO DISTENSION/GAS/BLOATING; Start 02/04/17 at 14:30 Magnesium Hydroxide (Milk Of Mag) 30 ml BID PRN PO CONSTIPATION; Start at 14:30 Acetaminophen (Tylenol Tab) 1,000 mg Q4H PRN PO TEMP GREATER THAN 100.4F; Start 02/04/17 at 14:30 Oxycodone/ Acetaminophen (Percocet (5/ 325)) 1 tab Q4H PRN PO PAIN LEVEL 1-5; Start 02/04/17 at 14:30 Oxycodone/ Acetaminophen (Percocet (5/ 325)) 2 tab Q4H PRN PO PAIN LEVEL 6-10; Start 02/04/17 at 14:30 Morphine Sulfate (morphine) 2 mg Q2H PRN IV PAIN LEVEL 1-5; Start 02/04/17 at 14:30 Morphine Sulfate (morphine) 4 mg Q4H PRN IV PAIN LEVEL 6-10; Start 02/04/17 at 14:30 Ketorolac Tromethamine (Toradol) 15 mg Q6H PRN IV PAIN; Start 02/04/17 at 14:30 ; Stop 02/07/17 at 14:29 Ondansetron HCl (Zofran Inj) 4 mg Q6H PRN IV NAUSEA AND/OR VOMITING; Start 02/04/17 at 14:30 Diphenhydramine HCl 25 mg 25 mg Q6H PRN IV PRURITUS; Start 02/04/17 at 14:30 Propofol (Diprivan) 100 ml @ 2.526 mls/ hr Q12H IV Last administered on t 16:00; Admin Dose 25.26 MLS/HR; Start 02/04/17 at 15:30 Aspirin (Aspirin) 81 mg DAILY NGT ; Start 02/05/17 at 09:00 Atorvastatin Calcium (Lipitor) 10 mg QHS NGT ; Start 02/04/17 at 21:00 Dexamethasone (Decadron) 2 mg Q6 NGT ; Start 02/04/17 at 18:00; Stop 12/8/17 at 12:01 Duloxetine HCl (Cymbalta) 60 mg DAILY NGT ; Start 02/05/17 at 09:00 Gabapentin (Neurontin) 200 mg BID NGT ; Start 02/04/17 at 21:00 Loratadine (Claritin) 10 mg DAILY NGT ; Start 02/05/17 at 09:00 Pramipexole (Mirapex) 0.125 mg HS NGT ; Start 02/04/17 at 17:30 Diltiazem HCl 60 mg 60 mg Q8 NGT ; Start 02/04/17 at 17:30 Potassium Chloride/Dextrose/ Sod Cl (D5-1/2ns + KCl 20 Meq) 1,000 ml @ 100 mls/ hr Q10H IV ; Start 02/04/17 at 17:30 Diagnostic Test (Pha) (Accu-Chek) 1 ea Q1H XX ; Start 02/04/17 at 17:30 Dextrose (D50w Syringe) 25 ml Q15M PRN IV Till BS 80 mg/dL or above x2; Start 02/04/17 at 17:30 Dextrose (D50w Syringe) 50 ml Q15M PRN IV Till BS 80 mg/dL or above x2; Start 02/04/17 at 17:30 CARLY JIN MD Feb 04, 2017 18:13
[2017-02-04] MEDS: ACCU-CHEK XX SCH ×6 (18:30→23:44)
[2017-02-04] MEDS: DILTIAZEM 60 MG TAB NGT SCH ×2 (18:46→23:01)
[2017-02-04] MEDS: DEXAMETHASONE 2 MG TAB NGT SCH (18:46)
[2017-02-04] MEDS: PRAMIPEXOLE 0.125 MG TAB NGT SCH ×2 (18:46→21:15)
[2017-02-04] MEDS: INSULIN HUMAN REGULAR 100 UNIT in SOD CHLORIDE 0.9% 99 ML IV SCH (19:41)
[2017-02-04] MEDS: morphine 4 MG/ML VIAL IV PRN (19:56)
[2017-02-04] MEDS ORDERED: ATORVASTATIN 10 MG TAB PO SCH (21:00)
[2017-02-04] MEDS ORDERED: GABAPENTIN 300 MG CAP PO SCH (21:00)
[2017-02-04] MEDS ORDERED: [UNRECOGNIZED DRUG - OTHER] SQ SCH (21:00)
[2017-02-04] MEDS ORDERED: GABAPENTIN 100 MG CAP PO SCH (21:00)
[2017-02-04] MEDS ORDERED: VERAPAMIL (SR) 180 MG TAB PO SCH (21:00)
[2017-02-04] MEDS ORDERED: PRAMIPEXOLE 0.125 MG TAB PO SCH (21:00)
[2017-02-04] MEDS ORDERED: INSULIN GLARGINE HUM REC ANLOG 34 UNIT SQ SCH (21:00)
[2017-02-04] MEDS ORDERED: ATORVASTATIN 10 MG TAB NGT SCH (21:00)
[2017-02-04] MEDS: GABAPENTIN 100 MG CAP NGT SCH (21:15)
[2017-02-04] MEDS: SENNA/DOCUSATE NA (8.6MG/50MG) TAB PO SCH (21:15)
[2017-02-04 21:38] LABS: AADO2 Arterial 143.4 mmHg (7.0-24.0); Allen Test ACCEPTAB; Arterial Base Excess -2.8 mmol/L (-3.0-3); Arterial COHb 0.3 % (0.0-3.0); Arterial Fraction of Oxyhgb 96.4 % (93.0-99.0); Arterial HCO3 22.2 mmol/L (22.0-26.0); Arterial MetHb 0.1 % (0.0-1.5); Arterial Total Hemglobin 12.8 g/dl (12.0-18.0); Blood Gas Mean Airway Pressure 9.8; MODE VENT - AC
[2017-02-05] VITALS (47 sets, daily range): BP systolic 107–165; BP diastolic 54–106; PULSE 70–103; RESP 14–27
[2017-02-05] MEDS: ACCU-CHEK XX SCH ×21 (00:38→23:00)
[2017-02-05] MEDS: DEXAMETHASONE 2 MG TAB NGT SCH ×3 (00:42→12:15)
[2017-02-05] MEDS: morphine 4 MG/ML VIAL IV PRN (02:05)
[2017-02-05] MEDS: PROPOFOL 100 ML IV SCH ×2 (02:58→06:53)
[2017-02-05] MEDS: D5W-0.45 NACL + KCL 20 MEQ 1,000 ML IV SCH ×3 (04:05→23:30)
[2017-02-05] MEDS: VANCOMYCIN 500MG/NS (PMX) 100 ML IVPB SCH (05:01)
[2017-02-05 05:49] LABS: BASOPHILS % 0.4 % (0.0-2.0); HEMOGLOBIN 11.2 g/dl (12.0-16.0); LYMPHOCYTES % 9.6 % (15.0-51.0); MEAN CORPUSCULAR HEMOGLOBIN 26.7 pg (29.0-33.0); MEAN CORPUSCULAR VOLUME 83.5 fl (82.0-101.0); MEAN PLATELET VOLUME 11.9 fl (7.4-10.4); MONOCYTE # 0.4 10^3/ul (0.3-0.9); NEUTROPHIL # 8.9 10^3/ul (1.6-7.5); NEUTROPHILS % 85.3 % (39.0-77.0); PLATELET COUNT 301 10^3/UL (140-415); RED BLOOD COUNT 4.19 10^6/ul (4.20-5.40); RED CELL DISTRIBUTION WIDTH 13.8 % (11.5-14.5); WHITE BLOOD COUNT 10.4 10^3/ul (4.8-10.8)
[2017-02-05 06:20] LABS: ALBUMIN 2.8 g/dl (3.3-4.9); ALBUMIN/GLOBULIN RATIO 1.03; BILIRUBIN,INDIRECT 0.1 mg/dl (0-1.1); BILIRUBIN,TOTAL 0.1 mg/dl (0.2-1.3); CALCIUM 8.5 mg/dl (8.4-10.2); CREATININE 0.79 mg/dl (0.44-1.00); POTASSIUM 4.3 mmol/L (3.5-5.1); TOTAL PROTEIN 5.5 g/dl (6.1-8.1)
[2017-02-05 06:33] LABS: CHOL/HDL RATIO 2.5 RATIO; MAGNESIUM 1.7 mg/dl (1.7-2.5)
[2017-02-05] MEDS: DILTIAZEM 60 MG TAB NGT SCH ×2 (06:37→13:44)
--- NOTE | 2017-02-05 06:45 | PN ---
Date/Time of Note Date/Time of Note DATE: 02/05/17 TIME: 06:42 24 hour Interval Summary Patient is currently intubated and sedated. In attempting to awaken her last evening, she did become somewhat more combative once again and she was sedated. Physical Exam Physical examination: Her wound is clean and dry with the dressing that is intact. There is some diffuse ecchymoses around the wound but no drainage. There is no warmth or erythema. Passive motion of the shoulder reveals good range with no evident crepitus or subluxation events. Vital Signs Date Time Temp Pulse Resp B/P Pulse Ox O2 Delivery O2 Flow Rate FiO2 02/05/17 06:05 80 14 97 40 02/05/17 04:00 98.5 117/62 Mechanical Ventilator 02/04/17 15:08 10.0 Intake and Output 02/04/17 02/04/17 02/05/17 14:59 22:59 06:59 Intake Total 350 ml 516.4 ml 1046.3 ml Output Total 25 ml 820 ml 365 ml Balance 325 ml -303.6 ml 681.3 ml VTE Prophylaxis VTE Prophylaxis Intervention: SCD's Lines/Catheters IV Catheter Type: Peripheral IV Oconnor in Place: Yes Cont'd oconnor catheter reason: other (indicate) Results Result Diagram: 02/05/1751802/05/17518 Results 24hrs Laboratory Tests Test 02/04/17 10:50 02/04/17 18:50 02/04/17 19:39 02/04/17 20:46 Bedside Glucose 180 320 H 338 H 256 H Test 02/04/17 21:02 02/04/17 21:41 02/04/17 22:39 02/04/17 23:42 Blood Gas Specimen Source Blood arterial Arterial Blood Date Drawn 02/04/2017 9:26:08 PM Arterial Blood pH (Temp corrected) 7.370 Arterial Blood pCO2 (Temp correct) 39.2 Arterial Blood pO2 (Temp corrected) 96.7 H Arterial Blood HCO3 22.2 Arterial Blood Base Excess -2.8 Arterial Blood Oxygen Saturation 96.8 Alexis Test ACCEPTAB Arterial Blood Gas Puncture Site Right Radial Arterial Blood Carboxyhemoglobin 0.3 Arterial Blood Methemoglobin 0.1 Blood Gas A-a O2 Differential 143.4 H Oxyhemoglobin Percent 96.4 Total Hemoglobin 12.8 Blood Gas Temperature 37.0 Blood Gas Respiration Rate 14.0 Blood Gas Actual Respiration Rate 22 Blood Gas Modality VENT - AC FiO2 40.0 Blood Gas Tidal Volume 500.0 Blood Gas Mean Airway Pressure 9.8 Blood Gas Low PEEP Setting 5.0 Blood Gas Inspiratory Pressure 21.0 Blood Gas Notified Whom MICHELLE GOYAL Blood Gas Notified Time 02/04/2017 9:37:52 PM Bedside Glucose 252 H 222 H 219 Test 02/05/17 00:46 02/05/17 01:46 02/05/17 02:43 02/05/17 03:44 Bedside Glucose 152 120 104 114 Test 02/05/17 04:48 02/05/17 05:19 02/05/17 05:42 Bedside Glucose 121 127 White Blood Count 10.4 Red Blood Count 4.19 L Hemoglobin 11.2 L Hematocrit 35.0 L Mean Corpuscular Volume 83.5 Mean Corpuscular Hemoglobin 26.7 L Mean Corpuscular Hemoglobin Concent 32.0 Red Cell Distribution Width 13.8 Platelet Count 301 Mean Platelet Volume 11.9 H Neutrophils % 85.3 H Lymphocytes % 9.6 L Monocytes % 4.0 Eosinophils % 0.0 Basophils % 0.4 Nucleated Red Blood Cells % 0.0 Neutrophils # 8.9 H Lymphocytes # 1.0 Monocytes # 0.4 Eosinophils # 0.0 Basophils # 0.0 Nucleated Red Blood Cells # 0.0 Sodium Level 139 Potassium Level 4.3 Chloride Level 107 Carbon Dioxide Level 26 Anion Gap 10 Blood Urea Nitrogen 19 Creatinine 0.79 Glucose Level 132 Calcium Level 8.5 Total Bilirubin 0.1 L Direct Bilirubin 0.00 Indirect Bilirubin 0.1 Aspartate Amino Transf (AST/SGOT) 25 Alanine Aminotransferase (ALT/SGPT) 33 Alkaline Phosphatase 84 Total Protein 5.5 L Albumin 2.8 L Globulin 2.70 Albumin/Globulin Ratio 1.03 Assessment/Plan Chief Complaint/Hosp Course 76 y/o C F w/ h/o T2DM w/ neuropathy, HTN, hyperlipidemia, chronic pain, fibromyalgia, allergic rhinitis, restless leg syndrome, and OA s/p total shoulder replacement due to unreducible dislocation. However, post-operatively pt. had significant agitation, and fell from bed more than once. It is assumed that one of these caused failure of replacement and pt. has been having pain and recurrent dislocations since then. Pt. was scheduled for urgent revision of this and is now POD#0 from her procedure. Agitated and w/ resp. distress post-op and required ongoing intubation and breathing treatments. Problems: Assessment/Plan Assessment: Status post revision of reverse total shoulder with acute pulmonary decompensation Plan: I will await medical management of ongoing pulmonary condition. With respect to her shoulder, the initial plan had been to consider a transfer to a [facility] facility or perhaps an acute rehab facility depending on how she is doing postoperatively. Medications Medications Home Meds Reported Medications Cyanocobalamin* (Vitamin B12*) 500 Mcg Tab, 1000 MCG PO DAILY, TAB 02/04/17 Cholecalciferol (Vitamin D3) (Vitamin D-3) 2,000 Unit Tablet, 2000 UNIT PO DAILY , TAB 02/04/17 Cetirizine Hcl* (Cetirizine Hcl*) 10 Mg Tablet, 10 MG PO DAILY, #30 TAB 02/04/17 Pramipexole* (Pramipexole*) 0.125 Mg Tablet, 0.125 MG PO HS, TAB 02/04/17 Gabapentin* (Gabapentin*) 100 Mg Capsule, 200 MG PO BID, #180 CAP 02/04/17 Oxycodone HCl/Acetaminophen (Percocet 7.5-325 mg Tablet) 1 Each Tablet, 1 EACH PO Q8 Y for PAIN, TAB 02/04/17 Verapamil Hcl* (Verapamil ER*) 180 Mg Tablet.er, 180 MG PO BID, TAB.SA 02/04/17 Insulin Aspart* (Novolog Insulin Pen*) 100 Unit/Ml Soln, 12 UNIT SC WITH MEALS, EA 02/04/17 Insulin Glargine,Hum.rec.anlog (Toujeo Solostar) 300 Unit/1 Ml Insuln.pen, 34 UNIT SQ QHS 02/04/17 Atorvastatin Calcium (Atorvastatin Calcium) 10 Mg Tablet, 10 MG PO QHS, #30 TAB 02/04/17 Zolpidem Tartrate* (Zolpidem Tartrate*) 10 Mg Tablet, 10 MG PO QHS Y for INSOMNIA, #30 TAB 02/04/17 Duloxetine Hcl* (Duloxetine Hcl*) 60 Mg Capsule.dr, 60 MG PO DAILY, #30 CAP 11/12/16 Discontinued Reported Medications [pranpexole] No Conflict Check, 0.125 QHS 11/12/16 [trujeo] No Conflict Check, 300 11/12/16 Insulin Aspart (Novolog FlexPen) 100 Unit/1 Ml Insuln.pen, 100 SC SLIDING SCALE AC, EA 11/12/16 Gabapentin* (Gabapentin*) 100 Mg Capsule, 100 MG PO TID, #90 CAP 11/12/16 Duloxetine Hcl* (Cymbalta*) 60 Mg Capsule.dr, 60 MG PO DAILY, CAP 11/12/16 Atorvastatin* (Atorvastatin*) 40 Mg Tablet, 10 MG PO QHS, #30 TAB 11/12/16 Aspirin* (Aspirin* Chew) 81 Mg Tab.chew, 81 MG PO DAILY, TAB.CHEW 11/12/16 Zolpidem Tartrate* (Ambien*) 5 Mg Tablet, 5 MG PO QHS Y for INSOMNIA, #30 TAB 11/12/16 JEREMIAH CURRAN MD Feb 05, 2017 06:45
[2017-02-05 07:05] LABS: THYROID STIMULATING HORMONE 0.52 MIU/L (0.465-4.680)
--- NOTE | 2017-02-05 08:30 | CONS ---
Date/Time of Note Date/Time of Note DATE: 02/05/17 TIME: 08:26 Assessment/Plan Assessment/Plan Additional Assessment/Plan Ventilator setting; AC of 14, tidal volume 500, PEEP of 5, 40% FiO2. Patient is currently on propofol at 40 mics per kilogram per minute. Insulin drip 3 U/h. Patient is off Versed. Chest x-ray was reviewed from yesterday which is showing minimal pulmonary vascular congestion. Assessment and recommendations; 1. Patient admitted for right shoulder surgery to be reintubated. Due to severe hypoventilation possibly from underlying sleep apnea. 2. Multiple other comorbidities including hypertension, diabetes, neuropathy, depression, neuropathy. 3. Mild hyperglycemia, patient currently on insulin drip. Hold further sedation. Once the patient is off sedation she will be evaluated for possible extubation. Meanwhile continue current supportive care. Consultation Date/Type/Reason Admit Date/Time Feb 04, 2017 at 10:01 Date of Consultation: Feb 05, 2017 Type of Consultation: Pulmonary/critical care Reason for Consultation Pulmonary consultation requested for evaluation of postop respiratory failure. History of present illness; patient is a 76-year-old white lady who underwent right shoulder surgery because of chronic pain. Surgery was uneventful and the patient was extubated postop but because of severe hypoventilation patient had to be reintubated and subsequently transferred to ICU. By the time I saw the patient I saw the patient is sedated and orally intubated. History was obtained from medical records. Past medical history; 1. Patient with history of prior right shoulder surgery. 2. Diabetes. 3. Fibromyalgia. 4. Hypertension. 5. Neuropathy. 6. Depression. Medications; reviewed. Allergies; penicillin, hydromorphone. Social history; patient is an ex-smoker. Family history; not available. Occupation history; not available. Review of systems; currently unable to be obtained. General exam; elderly woman, orally intubated, sedated, currently in no distress. Past Medical History Medical History: diabetes, high cholesterol, hypertension, other (allergic rhinitis, chronic pain, fibromyalgia, OA) Past Surgical History Past Surgical Hx: other (R total shoulder, B Total Knee, fundoplication, MARIAN, L ulnar n. decompression) Social History Alcohol Use: none Smoking Status: Former smoker (1 ppd x 10-12 y, quit 45 y. ago) Drug Use: none Exam/Review of Systems Vital Signs Vitals Vital Signs Date Time Temp Pulse Resp B/P Pulse Ox O2 Delivery O2 Flow Rate FiO2 02/05/17 07:05 66 14 95 40 02/05/17 06:30 140/79 Mechanical Ventilator 02/05/17 04:00 98.5 02/04/17 15:08 10.0 Intake and Output 02/04/17 02/04/17 02/05/17 15:00 23:00 07:00 Intake Total 350 ml 642.0 ml 1145.908 ml Output Total 25 ml 930 ml 585 ml Balance 325 ml -288.0 ml 560.908 ml Exam HEENT exam; supple neck, no JVD. No lymphadenopathy. Midline trachea. No thyromegaly. Orally intubated. Patient has fair dentition. Pupils are small bilaterally. Chest exam; clear to auscultation. S1-S2 audible, no murmurs. Regular rhythm. Abdomen exam; soft, slightly protuberant. No organomegaly. Bowel sounds audible. Extremity exam; no edema. Pulses 1+ bilaterally. There is a scar involving the right shoulder area. [employer] exam; patient is sedated. Results Result Diagram: 02/05/1751802/05/17518 Results 24 hrs Laboratory Tests Test 02/04/17 10:50 02/04/17 18:50 02/04/17 19:39 02/04/17 20:46 Bedside Glucose 180 320 H 338 H 256 H Test 02/04/17 21:02 02/04/17 21:41 02/04/17 22:39 02/04/17 23:42 Blood Gas Specimen Source Blood arterial Arterial Blood Date Drawn 02/04/2017 9:26:08 PM Arterial Blood pH (Temp corrected) 7.370 Arterial Blood pCO2 (Temp correct) 39.2 Arterial Blood pO2 (Temp corrected) 96.7 H Arterial Blood HCO3 22.2 Arterial Blood Base Excess -2.8 Arterial Blood Oxygen Saturation 96.8 Alexis Test ACCEPTAB Arterial Blood Gas Puncture Site Right Radial Arterial Blood Carboxyhemoglobin 0.3 Arterial Blood Methemoglobin 0.1 Blood Gas A-a O2 Differential 143.4 H Oxyhemoglobin Percent 96.4 Total Hemoglobin 12.8 Blood Gas Temperature 37.0 Blood Gas Respiration Rate 14.0 Blood Gas Actual Respiration Rate 22 Blood Gas Modality VENT - AC FiO2 40.0 Blood Gas Tidal Volume 500.0 Blood Gas Mean Airway Pressure 9.8 Blood Gas Low PEEP Setting 5.0 Blood Gas Inspiratory Pressure 21.0 Blood Gas Notified Whom MICHELLE GOYAL Blood Gas Notified Time 02/04/2017 9:37:52 PM Bedside Glucose 252 H 222 H 219 Test 02/05/17 00:46 02/05/17 01:46 02/05/17 02:43 02/05/17 03:44 Bedside Glucose 152 120 104 114 Test 02/05/17 04:48 02/05/17 05:19 02/05/17 05:42 02/05/17 06:39 Bedside Glucose 121 127 110 White Blood Count 10.4 Red Blood Count 4.19 L Hemoglobin 11.2 L Hematocrit 35.0 L Mean Corpuscular Volume 83.5 Mean Corpuscular Hemoglobin 26.7 L Mean Corpuscular Hemoglobin Concent 32.0 Red Cell Distribution Width 13.8 Platelet Count 301 Mean Platelet Volume 11.9 H Neutrophils % 85.3 H Lymphocytes % 9.6 L Monocytes % 4.0 Eosinophils % 0.0 Basophils % 0.4 Nucleated Red Blood Cells % 0.0 Neutrophils # 8.9 H Lymphocytes # 1.0 Monocytes # 0.4 Eosinophils # 0.0 Basophils # 0.0 Nucleated Red Blood Cells # 0.0 Sodium Level 139 Potassium Level 4.3 Chloride Level 107 Carbon Dioxide Level 26 Anion Gap 10 Blood Urea Nitrogen 19 Creatinine 0.79 Glucose Level 132 Hemoglobin A1c 8.7 H Calcium Level 8.5 Phosphorus Level 3.0 Magnesium Level 1.7 Total Bilirubin 0.1 L Direct Bilirubin 0.00 Indirect Bilirubin 0.1 Aspartate Amino Transf (AST/SGOT) 25 Alanine Aminotransferase (ALT/SGPT) 33 Alkaline Phosphatase 84 Total Protein 5.5 L Albumin 2.8 L Globulin 2.70 Albumin/Globulin Ratio 1.03 Triglycerides Level 84 Cholesterol Level 141 LDL Cholesterol, Calculated 68 HDL Cholesterol 56 Cholesterol/HDL Ratio 2.5 Thyroid Stimulating Hormone (TSH) 0.520 Test 02/05/17 07:40 02/05/17 08:02 Bedside Glucose 105 108 Medications Medications Current Medications Senna/Docusate Sodium (Senokot-S) 1 tab BID PO Last administered on 02/04/17t 21:15; Admin Dose 1 TAB; Start 02/04/17 at 21:00 Simethicone (Mylicon) 80 mg TID PRN PO DISTENSION/GAS/BLOATING; Start 02/04/17 at 14:30 Magnesium Hydroxide (Milk Of Mag) 30 ml BID PRN PO CONSTIPATION; Start at 14:30 Acetaminophen (Tylenol Tab) 1,000 mg Q4H PRN PO TEMP GREATER THAN 100.4F; Start 02/04/17 at 14:30 Oxycodone/ Acetaminophen (Percocet (5/ 325)) 1 tab Q4H PRN PO PAIN LEVEL 1-5; Start 02/04/17 at 14:30 Oxycodone/ Acetaminophen (Percocet (5/ 325)) 2 tab Q4H PRN PO PAIN LEVEL 6-10; Start 02/04/17 at 14:30 Morphine Sulfate (morphine) 2 mg Q2H PRN IV PAIN LEVEL 1-5; Start 02/04/17 at 14:30 Morphine Sulfate (morphine) 4 mg Q4H PRN IV PAIN LEVEL 6-10 Last administered on 02/05/17 02:05; Admin Dose 4 MG; Start 02/04/17 at 14:30 Ketorolac Tromethamine (Toradol) 15 mg Q6H PRN IV PAIN Last administered on 02:06; Admin Dose 15 MG; Start 02/04/17 at 14:30; Stop 02/07/17 at 14:29 Ondansetron HCl (Zofran Inj) 4 mg Q6H PRN IV NAUSEA AND/OR VOMITING; Start 02/04/17 at 14:30 Diphenhydramine HCl 25 mg 25 mg Q6H PRN IV PRURITUS; Start 02/04/17 at 14:30 Propofol (Diprivan) 100 ml @ 2.526 mls/ hr Q12H IV Last administered on 06:53; Admin Dose 20.208 MLS/HR; Start 02/04/17 at 15:30 Aspirin (Aspirin) 81 mg DAILY NGT ; Start 02/05/17 at 09:00 Atorvastatin Calcium (Lipitor) 10 mg QHS NGT Last administered on 02/04/17 21: 16; Admin Dose 10 MG; Start 02/04/17 at 21:00 Dexamethasone (Decadron) 2 mg Q6 NGT Last administered on 02/05/17 06:38; Admin Dose 2 MG; Start 02/04/17 at 18:00; Stop 02/05/17 at 12:01 Duloxetine HCl (Cymbalta) 60 mg DAILY NGT ; Start 02/05/17 at 09:00 Gabapentin (Neurontin) 200 mg BID NGT Last administered on 02/04/17 21:15; Admin Dose 200 MG; Start 02/04/17 at 21:00 Loratadine (Claritin) 10 mg DAILY NGT ; Start 02/05/17 at 09:00 Pramipexole (Mirapex) 0.125 mg HS NGT Last administered on 02/04/17 21:15; Admin Dose 0.125 MG; Start 02/04/17 at 17:30 Diltiazem HCl 60 mg 60 mg Q8 NGT Last administered on 02/05/17 06:37; Admin Dose 60 MG; Start 02/04/17 at 17:30 Potassium Chloride/Dextrose/ Sod Cl (D5-1/2ns + KCl 20 Meq) 1,000 ml @ 100 mls/ hr Q10H IV Last administered on 02/05/17 04:05; Admin Dose 100 MLS/HR; Start 02/04/17 at 17:30 Diagnostic Test (Pha) (Accu-Chek) 1 ea Q1H XX Last administered on 02/05/17 07 :30; Admin Dose 1 EA; Start 02/04/17 at 17:30 Dextrose (D50w Syringe) 25 ml Q15M PRN IV Till BS 80 mg/dL or above x2; Start 02/04/17 at 17:30 Dextrose (D50w Syringe) 50 ml Q15M PRN IV Till BS 80 mg/dL or above x2; Start 02/04/17 at 17:30 ZAKIYA SIMPSON Feb 05, 2017 08:30
[2017-02-05] MEDS ORDERED: LORATADINE 10 MG TAB NGT SCH (09:00)
[2017-02-05] MEDS ORDERED: ASPIRIN 81 MG TAB NGT SCH (09:00)
[2017-02-05] MEDS ORDERED: DULOXETINE 30 MG CAP DR PO SCH (09:00)
[2017-02-05] MEDS ORDERED: DULOXETINE 30 MG CAP DR NGT SCH (09:00)
[2017-02-05] MEDS ORDERED: LORATADINE 10 MG TAB PO SCH (09:00)
[2017-02-05] MEDS ORDERED: ASPIRIN 81 MG TAB PO SCH (09:00)
[2017-02-05] MEDS: SENNA/DOCUSATE NA (8.6MG/50MG) TAB PO SCH ×2 (09:25→21:13)
[2017-02-05] MEDS: GABAPENTIN 100 MG CAP NGT SCH (09:26)
[2017-02-05] MEDS ORDERED: LANSOPRAZOLE 30 MG CAP NGT SCH (11:00)
--- NOTE | 2017-02-05 11:29 | RADRPT ---
PROCEDURE: XR Chest. CLINICAL INDICATION: Shortness of breath TECHNIQUE: Single portable view of the chest was obtained COMPARISON: DR BRADFORD 02/04/2017 FINDINGS: The trachea is midline. There is an ET tube with distal tip below thoracic inlet. NG tube is noted w ith distal tip coursing below the hemidiaphragms. The cardiac silhouette is enlarged and pulmonary v ascularity are within normal limits. There is a left retrocardiac density and small left pleural eff usion. There appears to be chronic dislocation of the right glenohumeral joint hardware. IMPRESSION: 1. ET tube and NG tube in satisfactory position. 2. Left retrocardiac density; pneumonia versus atelectasis and small left pleural effusion. 3. 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 RPTAT: AAPP Physician Jose C Date Time Electronically viewed and signed by Physician Jose C on 02/05/2017 11:28 [email or web address]/
[2017-02-05 13:11] LABS: AADO2 Arterial 154.1 mmHg (7.0-24.0); Allen Test ACCEPTAB; Arterial Base Excess -2.4 mmol/L (-3.0-3); Arterial COHb 0.3 % (0.0-3.0); Arterial HCO3 20.7 mmol/L (22.0-26.0); Arterial MetHb 0.2 % (0.0-1.5); Arterial Total Hemglobin 12.9 g/dl (12.0-18.0); Blood Gas PS 10; MODE VENT - CPAP
[2017-02-05] MEDS: INSULIN HUMAN REGULAR 100 UNIT in SOD CHLORIDE 0.9% 99 ML IV SCH (14:15)
[2017-02-05] MEDS: OXYCODONE/ACETAMINOPHEN (5/325) TAB PO PRN ×2 (16:54→17:54)
--- NOTE | 2017-02-05 17:11 | CONS ---
Date/Time of Note Date/Time of Note DATE: 02/05/17 TIME: 17:06 Assessment/Plan Assessment/Plan Problems: (1) Respiratory failure, post-operative Status: Resolved Comment: Extubated and doing well. Passed swallow study. Likely to start carb -controlled diet tomorrow. (2) Fibromyalgia Status: Chronic Comment: Cont. duloxetine, gabapentin (3) Hyperlipidemia Status: Chronic Comment: Cont. statin (4) Restless leg syndrome Status: Chronic Comment: Cont. mirapex (5) Allergic rhinitis Status: Chronic Comment: Cont. antihistamine (6) Essential (primary) hypertension Status: Chronic Comment: Cont. verapamil (7) Chronic pain disorder Status: Chronic Comment: Cont. pain management (8) Type 2 diabetes mellitus with hyperglycemia Status: Chronic Comment: Pt. to wean off insulin drip. Has required 1.5-5 units/hr. Will start 30 units lantus tonight and stop IVF and insulin drip 4 hours later. Add Alg 2 Novolog ISS in the am. Add linagliptin 5 mg/d in am. Once starts carb- controlled diet, add Novolog 12 units qac. Will monitor and follow. 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 Defer to primary team for pain management Consultation Date/Type/Reason Admit Date/Time Feb 04, 2017 at 10:01 Initial Consult Date 02/05/17 Type of Consultation: Med/Endo Reason for Consultation Medicine/Diabetes management Referring Provider: JEREMIAH CURRAN MD 24 HR Interval Summary Constitutional: improved, no complaints Detailed Summary Respiratory: no complaints Cardiovascular: no complaints Gastrointestinal: no complaints Genitourinary: no complaints Musculoskeletal: bone/joint pain (B shoulders) Neurologic: no complaints Exam/Review of Systems Vital Signs Vitals VS - Last 72 Hours, by Label Date Time Temp Pulse Resp B/P Pulse Ox O2 Delivery O2 Flow Rate FiO2 02/05/17 16:19 96 4.0 02/05/17 16:19 98.9 93 21 133/66 96 Nasal Cannula 4.0 02/05/17 16:00 94 02/05/17 15:30 93 21 136/66 97 Nasal Cannula 4.0 02/05/17 15:00 91 19 119/69 95 Nasal Cannula 4.0 02/05/17 14:17 99 27 151/75 95 Nasal Cannula 4.0 02/05/17 13:50 100 18 98 35 02/05/17 13:30 103 15 107/94 100 CPAP 02/05/17 13:17 102 20 99 40 02/05/17 13:00 100 23 162/85 100 CPAP 02/05/17 12:30 91 21 165/82 98 CPAP 02/05/17 12:11 95 15 99 40 02/05/17 12:00 92 02/05/17 12:00 99.3 92 17 157/90 98 02/05/17 11:35 92 19 100 40 02/05/17 11:30 91 21 159/73 100 Mechanical Ventilator 02/05/17 11:00 93 16 165/68 88 Mechanical Ventilator 02/05/17 10:30 73 14 127/59 98 Mechanical Ventilator 02/05/17 10:00 75 14 125/54 97 Mechanical Ventilator 02/05/17 09:30 15 133/69 98 Mechanical Ventilator 02/05/17 09:10 79 14 95 40 02/05/17 09:00 78 14 139/61 97 Mechanical Ventilator 02/05/17 08:30 75 14 123/58 98 Mechanical Ventilator 02/05/17 08:00 40 02/05/17 08:00 97.6 73 14 115/61 98 Mechanical Ventilator 02/05/17 08:00 72 02/05/17 07:30 70 14 119/65 95 Mechanical Ventilator 02/05/17 07:05 66 14 95 40 02/05/17 07:00 70 14 113/64 93 Mechanical Ventilator 02/05/17 06:30 77 14 140/79 97 Mechanical Ventilator 02/05/17 06:05 80 14 97 40 02/05/17 06:00 82 14 128/65 94 Mechanical Ventilator 02/05/17 05:30 82 14 127/64 94 Mechanical Ventilator 02/05/17 05:00 83 14 125/64 94 Mechanical Ventilator 02/05/17 04:30 82 14 120/66 94 Mechanical Ventilator 02/05/17 04:00 98.5 85 14 117/62 92 Mechanical Ventilator 02/05/17 04:00 86 02/05/17 03:30 90 16 127/64 94 Mechanical Ventilator 02/05/17 03:15 80 14 98 40 02/05/17 03:00 91 14 127/65 94 Mechanical Ventilator 02/05/17 02:30 91 14 117/57 95 Mechanical Ventilator 02/05/17 02:00 92 15 140/67 93 Mechanical Ventilator 02/05/17 01:30 97 18 157/75 89 Mechanical Ventilator 02/05/17 01:12 79 14 96 40 02/05/17 01:00 99 19 158/83 98 Mechanical Ventilator 02/05/17 00:30 96 27 142/106 95 Mechanical Ventilator 02/05/17 00:00 94 02/05/17 00:00 99.1 94 19 123/70 95 Mechanical Ventilator 02/04/17 23:30 98 16 129/55 96 Mechanical Ventilator 02/04/17 23:18 97 18 96 40 02/04/17 23:00 98 22 131/56 95 Mechanical Ventilator 02/04/17 22:30 91 20 107/53 96 Mechanical Ventilator 02/04/17 22:00 100 21 135/81 96 Mechanical Ventilator 02/04/17 21:30 102 18 146/91 97 Mechanical Ventilator 02/04/17 21:24 98 16 96 40 02/04/17 21:00 100 19 130/77 96 Mechanical Ventilator 02/04/17 20:30 96 17 125/62 97 Mechanical Ventilator 02/04/17 20:00 40 02/04/17 20:00 99.5 109 23 155/72 97 Mechanical Ventilator 02/04/17 20:00 105 02/04/17 19:30 107 17 148/72 94 Mechanical Ventilator 02/04/17 19:15 98 17 96 40 02/04/17 19:00 101 17 134/63 95 Mechanical Ventilator 02/04/17 18:45 100 18 114/61 97 Mechanical Ventilator 02/04/17 18:33 103 18 150/73 100 Mechanical Ventilator 02/04/17 18:15 101 16 113/75 97 Mechanical Ventilator 02/04/17 18:00 99.0 103 15 97/81 97 Mechanical Ventilator 02/04/17 18:00 40 02/04/17 17:56 104 14 116/69 98 Mechanical Ventilator 02/04/17 17:53 104 15 133/65 98 Mechanical Ventilator 02/04/17 17:49 117 23 169/132 97 Mechanical Ventilator 02/04/17 17:36 119 26 99 40 02/04/17 17:15 118 22 152/101 95 Mechanical Ventilator 02/04/17 16:55 118 22 152/82 97 Mechanical Ventilator 02/04/17 16:45 118 19 162/93 97 Mechanical Ventilator 02/04/17 16:40 124 20 142/80 96 Mechanical Ventilator 02/04/17 16:25 122 20 152/85 96 Mechanical Ventilator 02/04/17 16:20 122 19 140/85 95 Mechanical Ventilator 02/04/17 16:15 122 25 162/77 95 Mechanical Ventilator 02/04/17 16:10 116 29 152/82 96 Mechanical Ventilator 02/04/17 16:05 112 18 161/79 96 Mechanical Ventilator 02/04/17 16:00 112 25 142/78 99 Mechanical Ventilator 02/04/17 15:59 110 29 161/87 98 Mechanical Ventilator 02/04/17 15:54 110 26 147/102 99 Mechanical Ventilator 02/04/17 15:38 108 39 168/95 98 Mechanical Ventilator 02/04/17 15:33 106 32 176/77 97 Mechanical Ventilator 02/04/17 15:28 104 20 156/74 98 Mechanical Ventilator 02/04/17 15:23 108 20 178/96 99 Mechanical Ventilator 02/04/17 15:20 111 25 98 80 02/04/17 15:08 108 18 175/77 95 Mask 10.0 02/04/17 15:03 106 14 177/86 97 Mask 10.0 02/04/17 15:00 70 02/04/17 14:39 98.6 02/04/17 14:31 98.6 100 28 173/102 97 Mask 10.0 02/04/17 10:29 99.1 87 16 135/75 96 Room Air Vital Signs Date Time Temp Pulse Resp B/P Pulse Ox O2 Delivery O2 Flow Rate FiO2 02/05/17 16:19 96 4.0 02/05/17 16:19 98.9 93 21 133/66 Nasal Cannula 02/05/17 13:50 35 Intake and Output 02/04/17 02/04/17 02/05/17 15:00 23:00 07:00 Intake Total 350 ml 651.0 ml 1145.908 ml Output Total 25 ml 930 ml 585 ml Balance 325 ml -279.0 ml 560.908 ml Exam Constitutional: alert, obese, oriented Psych: nl mood/affect, no complaints Respiratory: clear to auscultation, normal air movement Cardiovascular: nl pulses, regular rate and rhythm, No edema, No murmurs/extra sounds, No rub Gastrointestinal: bowel sounds, nl liver, spleen, non-tender, soft, No mass, No rebound or guarding Musculoskeletal: nl extremities to inspection Extremities: normal pulses, No clubbing, No cyanosis, No edema Neurological: CHIEF SERVICE OBSERVER II-XII intact, nl mental status, nl speech, nl strength Additional Comments Bedside Glucose - 72 Hours Test 02/04/17 10:50 02/04/17 18:50 02/04/17 19:39 02/04/17 20:46 Bedside Glucose 180mg/dL (70-220) 320mg/dL (70-220) H 338mg/dL (70-220) H 256mg/dL (70-220) H Test 02/04/17 21:41 02/04/17 22:39 02/04/17 23:42 02/05/17 00:46 Bedside Glucose 252mg/dL (70-220) H 222mg/dL (70-220) H 219mg/dL (70-220) 152mg/dL (70-220) Test 02/05/17 01:46 02/05/17 02:43 02/05/17 03:44 02/05/17 04:48 Bedside Glucose 120mg/dL (70-220) 104mg/dL (70-220) 114mg/dL (70-220) 121mg/dL (70-220) Test 02/05/17 05:42 02/05/17 06:39 02/05/17 07:40 02/05/17 08:02 Bedside Glucose 127mg/dL (70-220) 110mg/dL (70-220) 105mg/dL (70-220) 108mg/dL (70-220) Test 02/05/17 09:10 02/05/17 10:28 02/05/17 11:03 02/05/17 12:11 Bedside Glucose 117mg/dL (70-220) 117mg/dL (70-220) 116mg/dL (70-220) 165mg/dL (70-220) Test 02/05/17 13:47 02/05/17 15:21 02/05/17 16:04 02/05/17 17:02 Bedside Glucose 97mg/dL (70-220) 120mg/dL (70-220) 123mg/dL (70-220) 124mg/dL (70-220) Results Result Diagram: 02/05/17 0519 02/05/17 0519 Results 24 hrs Laboratory Tests Test 02/04/17 18:50 02/04/17 19:39 02/04/17 20:46 02/04/17 21:02 Bedside Glucose 320 H 338 H 256 H Blood Gas Specimen Source Blood arterial Arterial Blood Date Drawn 02/04/2017 9:26:08 PM Arterial Blood pH (Temp corrected) 7.370 Arterial Blood pCO2 (Temp correct) 39.2 Arterial Blood pO2 (Temp corrected) 96.7 H Arterial Blood HCO3 22.2 Arterial Blood Base Excess -2.8 Arterial Blood Oxygen Saturation 96.8 Alexis Test ACCEPTAB Arterial Blood Gas Puncture Site Right Radial Arterial Blood Carboxyhemoglobin 0.3 Arterial Blood Methemoglobin 0.1 Blood Gas A-a O2 Differential 143.4 H Oxyhemoglobin Percent 96.4 Total Hemoglobin 12.8 Blood Gas Temperature 37.0 Blood Gas Respiration Rate 14.0 Blood Gas Actual Respiration Rate 22 Blood Gas Modality VENT - AC FiO2 40.0 Blood Gas Tidal Volume 500.0 Blood Gas Mean Airway Pressure 9.8 Blood Gas Low PEEP Setting 5.0 Blood Gas Inspiratory Pressure 21.0 Blood Gas Notified Whom MICHELLE GOYAL Blood Gas Notified Time 02/04/2017 9:37:52 PM Test 02/04/17 21:41 02/04/17 22:39 02/04/17 23:42 02/05/17 00:46 Bedside Glucose 252 H 222 H 219 152 Test 02/05/17 01:46 02/05/17 02:43 02/05/17 03:44 02/05/17 04:48 Bedside Glucose 120 104 114 121 Test 02/05/17 05:19 02/05/17 05:42 02/05/17 06:39 02/05/17 07:40 White Blood Count 10.4 Red Blood Count 4.19 L Hemoglobin 11.2 L Hematocrit 35.0 L Mean Corpuscular Volume 83.5 Mean Corpuscular Hemoglobin 26.7 L Mean Corpuscular Hemoglobin Concent 32.0 Red Cell Distribution Width 13.8 Platelet Count 301 Mean Platelet Volume 11.9 H Neutrophils % 85.3 H Lymphocytes % 9.6 L Monocytes % 4.0 Eosinophils % 0.0 Basophils % 0.4 Nucleated Red Blood Cells % 0.0 Neutrophils # 8.9 H Lymphocytes # 1.0 Monocytes # 0.4 Eosinophils # 0.0 Basophils # 0.0 Nucleated Red Blood Cells # 0.0 Sodium Level 139 Potassium Level 4.3 Chloride Level 107 Carbon Dioxide Level 26 Anion Gap 10 Blood Urea Nitrogen 19 Creatinine 0.79 Glucose Level 132 Hemoglobin A1c 8.7 H Calcium Level 8.5 Phosphorus Level 3.0 Magnesium Level 1.7 Total Bilirubin 0.1 L Direct Bilirubin 0.00 Indirect Bilirubin 0.1 Aspartate Amino Transf (AST/SGOT) 25 Alanine Aminotransferase (ALT/SGPT) 33 Alkaline Phosphatase 84 Total Protein 5.5 L Albumin 2.8 L Globulin 2.70 Albumin/Globulin Ratio 1.03 Triglycerides Level 84 Cholesterol Level 141 LDL Cholesterol, Calculated 68 HDL Cholesterol 56 Cholesterol/HDL Ratio 2.5 Thyroid Stimulating Hormone (TSH) 0.520 Bedside Glucose 127 110 105 Test 02/05/17 08:02 02/05/17 09:10 02/05/17 10:28 02/05/17 11:03 Bedside Glucose 108 117 117 116 Test 02/05/17 12:11 02/05/17 12:45 02/05/17 13:47 02/05/17 15:21 Bedside Glucose 165 97 120 Blood Gas Specimen Source Blood arterial Arterial Blood Date Drawn 02/05/2017 1:00:55 PM Arterial Blood pH (Temp corrected) 7.446 Arterial Blood pCO2 (Temp correct) 30.7 L Arterial Blood pO2 (Temp corrected) 95.8 H Arterial Blood HCO3 20.7 L Arterial Blood Base Excess -2.4 Arterial Blood Oxygen Saturation 97.5 Alexis Test ACCEPTAB Arterial Blood Gas Puncture Site Left Radial Arterial Blood Carboxyhemoglobin 0.3 Arterial Blood Methemoglobin 0.2 Blood Gas A-a O2 Differential 154.1 H Oxyhemoglobin Percent 97.0 Total Hemoglobin 12.9 Blood Gas Temperature 37.0 Blood Gas Actual Respiration Rate 16 Blood Gas Modality VENT - CPAP FiO2 40.0 Blood Gas Low PEEP Setting 5.0 Blood Gas Pressure Support 10 Blood Gas Notified Whom KB Blood Gas Notified Time 02/05/2017 1:11:43 PM Test 02/05/17 16:04 02/05/17 17:02 Bedside Glucose 123 124 Medications Medications Current Medications Senna/Docusate Sodium (Senokot-S) 1 tab BID PO Last administered on 02/05/17 09:25; Admin Dose 1 TAB; Start 02/04/17 at 21:00 Simethicone (Mylicon) 80 mg TID PRN PO DISTENSION/GAS/BLOATING; Start 02/04/17 at 14:30 Magnesium Hydroxide (Milk Of Mag) 30 ml BID PRN PO CONSTIPATION; Start at 14:30 Acetaminophen (Tylenol Tab) 1,000 mg Q4H PRN PO TEMP GREATER THAN 100.4F; Start 02/04/17 at 14:30 Oxycodone/ Acetaminophen (Percocet (5/ 325)) 1 tab Q4H PRN PO PAIN LEVEL 1-5 Last administered on 02/05/17 16:54; Admin Dose 1 TAB; Start 02/04/17 at 14:30 Oxycodone/ Acetaminophen (Percocet (5/ 325)) 2 tab Q4H PRN PO PAIN LEVEL 6-10; Start 02/04/17 at 14:30 Morphine Sulfate (morphine) 2 mg Q2H PRN IV PAIN LEVEL 1-5; Start 02/04/17 at 14:30 Morphine Sulfate (morphine) 4 mg Q4H PRN IV PAIN LEVEL 6-10 Last administered on 02/05/17 02:05; Admin Dose 4 MG; Start 02/04/17 at 14:30 Ketorolac Tromethamine (Toradol) 15 mg Q6H PRN IV PAIN Last administered on 02:06; Admin Dose 15 MG; Start 02/04/17 at 14:30; Stop 02/07/17 at 14:29 Ondansetron HCl (Zofran Inj) 4 mg Q6H PRN IV NAUSEA AND/OR VOMITING; Start 02/04/17 at 14:30 Diphenhydramine HCl 25 mg 25 mg Q6H PRN IV PRURITUS; Start 02/04/17 at 14:30 Propofol (Diprivan) 100 ml @ 2.526 mls/ hr Q12H IV Last administered on 06:53; Admin Dose 20.208 MLS/HR; Start 02/04/17 at 15:30 Aspirin (Aspirin) 81 mg DAILY NGT Last administered on 02/05/17 09:27; Admin Dose 81 MG; Start 02/05/17 at 09:00 Atorvastatin Calcium (Lipitor) 10 mg QHS NGT Last administered on 02/04/17 21: 16; Admin Dose 10 MG; Start 02/04/17 at 21:00 Duloxetine HCl (Cymbalta) 60 mg DAILY NGT Last administered on 02/05/17 09:27 ; Admin Dose 60 MG; Start 02/05/17 at 09:00 Gabapentin (Neurontin) 200 mg BID NGT Last administered on 02/05/17 09:26; Admin Dose 200 MG; Start 02/04/17 at 21:00 Loratadine (Claritin) 10 mg DAILY NGT Last administered on 02/05/17 09:27; Admin Dose 10 MG; Start 02/05/17 at 09:00 Pramipexole (Mirapex) 0.125 mg HS NGT Last administered on 02/04/17 21:15; Admin Dose 0.125 MG; Start 02/04/17 at 17:30 Diltiazem HCl 60 mg 60 mg Q8 NGT Last administered on 02/05/17 13:44; Admin Dose 60 MG; Start 02/04/17 at 17:30 Potassium Chloride/Dextrose/ Sod Cl (D5-1/2ns + KCl 20 Meq) 1,000 ml @ 100 mls/ hr Q10H IV Last administered on 02/05/17 15:20; Admin Dose 100 MLS/HR; Start 02/04/17 at 17:30 Dextrose (D50w Syringe) 25 ml Q15M PRN IV Till BS 80 mg/dL or above x2; Start 02/04/17 at 17:30 Dextrose (D50w Syringe) 50 ml Q15M PRN IV Till BS 80 mg/dL or above x2; Start 02/04/17 at 17:30 Lansoprazole (Prevacid) 30 mg DAILY@06 NGT Last administered on 02/05/17 12:15 ; Admin Dose 30 MG; Start 02/05/17 at 11:00 Diagnostic Test (Pha) (Accu-Chek) 1 ea Q1H XX Last administered on 02/05/17 17 :03; Admin Dose 1 EA; Start 02/05/17 at 11:00 CARLY JIN MD Feb 05, 2017 17:11
[2017-02-05] MEDS ORDERED: INSULIN ASPART [NOVOLOG] 3 ML PEN SC SCH (17:35)
[2017-02-05] MEDS: PRAMIPEXOLE 0.125 MG TAB PO SCH (21:12)
[2017-02-05] MEDS: ATORVASTATIN 10 MG TAB PO SCH (21:13)
[2017-02-05] MEDS: VERAPAMIL (SR) 180 MG TAB PO SCH (21:13)
[2017-02-05] MEDS: GABAPENTIN 100 MG CAP PO SCH (21:15)
[2017-02-05] MEDS: ZOLPIDEM 5 MG TAB PO PRN (21:15)
[2017-02-05] MEDS: INSULIN GLARGINE [LANtus] 3 ML PEN SC SCH (22:00)
[2017-02-06] VITALS (20 sets, daily range): BP systolic 124–176; BP diastolic 61–113; PULSE 65–88; RESP 12–30
[2017-02-06] MEDS: ACCU-CHEK XX SCH ×10 (00:39→07:49)
[2017-02-06] MEDS: ZOLPIDEM 5 MG TAB PO PRN ×2 (00:39→21:58)
[2017-02-06] MEDS: OXYCODONE/ACETAMINOPHEN (5/325) TAB PO PRN ×3 (04:02→20:45)
[2017-02-06 05:43] LABS: BASOPHILS % 0.3 % (0.0-2.0); EOSINOPHILS % 0.1 % (0.0-7.0); HEMATOCRIT 36.5 % (37.0-47.0); HEMOGLOBIN 11.9 g/dl (12.0-16.0); LYMPHOCYTES # 1.6 10^3/ul (0.8-2.9); MEAN CORPUSCULAR HGB CONC 32.6 g/dl (32.0-37.0); MEAN PLATELET VOLUME 11.8 fl (7.4-10.4); MONOCYTE # 1.1 10^3/ul (0.3-0.9); NEUTROPHIL # 12.7 10^3/ul (1.6-7.5); NEUTROPHILS % 82.1 % (39.0-77.0); PLATELET COUNT 299 10^3/UL (140-415); WHITE BLOOD COUNT 15.5 10^3/ul (4.8-10.8)
[2017-02-06] MEDS: INSULIN ASPART [NOVOLOG] 3 ML PEN SC SCH ×7 (06:00→20:56)
[2017-02-06] MEDS: PANTOPRAZOLE (EC) 40 MG TAB PO SCH (06:13)
[2017-02-06 06:22] LABS: CALCIUM 9.2 mg/dl (8.4-10.2); CREATININE 0.77 mg/dl (0.44-1.00); POTASSIUM 4.7 mmol/L (3.5-5.1)
[2017-02-06] MEDS ORDERED: INSULIN ASPART [NOVOLOG] 3 ML PEN SC SCH ×2 (07:35→11:30)
[2017-02-06] MEDS: VERAPAMIL (SR) 180 MG TAB PO SCH ×2 (08:57→20:43)
[2017-02-06] MEDS: SENNA/DOCUSATE NA (8.6MG/50MG) TAB PO SCH ×2 (08:57→20:44)
[2017-02-06] MEDS: LORATADINE 10 MG TAB PO SCH (08:58)
[2017-02-06] MEDS: DULOXETINE 30 MG CAP DR PO SCH (08:58)
[2017-02-06] MEDS: ASPIRIN 81 MG TAB PO SCH (08:58)
[2017-02-06] MEDS: LINAGLIPTIN 5 MG TABLET PO SCH (08:58)
[2017-02-06] MEDS: GABAPENTIN 100 MG CAP PO SCH ×2 (08:58→20:45)
--- NOTE | 2017-02-06 10:50 | PN ---
Date/Time of Note Date/Time of Note DATE: 02/06/17 TIME: 10:43 Assessment/Plan VTE Prophylaxis VTE Prophylaxis Intervention: ambulation, SCD's Lines/Catheters IV Catheter Type (from Nrsg): Peripheral IV Urinary Cath still in place: Yes Reason Cath still needed: other (indicate) (Okay to remove per ortho team) Assessment/Plan Assessment/Plan 61 yo F s/p Right revision of reverse total shoulder 02/04/[address] Garcia c/b post-op agitation and respiratory distress now in the ICU. Regarding her orthopedic care, she should remain NWB RUE with sling in place. Ambulation with assist and SCDs for DVT prophy. Pain management per ICU team. Subjective 24 Hr Interval Summary Free Text/Dictation Patient reports shoulder pain controlled this morning. She is alert and answering questions appropriately. She has no acute concerns regarding her orthopedic care at this time. Constitutional: improved Exam/Review of Systems Vital Signs Vitals Vital Signs Date Time Temp Pulse Resp B/P Pulse Ox O2 Delivery O2 Flow Rate FiO2 02/06/17 08:00 75 02/06/17 06:00 14 135/81 94 Room Air 02/06/17 04:00 97.9 02/06/17 03:00 4.0 02/05/17 13:50 35 Intake and Output 02/05/17 02/05/17 02/06/17 15:00 23:00 07:00 Intake Total 955.75 ml 886.5 ml 161 ml Output Total 680 ml 305 ml 1375 ml Balance 275.75 ml 581.5 ml -1214 ml Exam In general, patient resting in bed in no acute distress. Right Upper Extremity: Sling in place Incision clean, dry, and intact Sensation intact to light touch in axillary, radial, median, and ulnar nerve distribution Patient able to demonstrate thumbs up, okay sign, finger cross, and finger abduction Finger tips warm and well perfused with brisk cap refill Results Result Diagram: 02/06/17 0445 02/06/17 0445 Results 24 hrs Laboratory Tests Test 02/05/17 11:03 02/05/17 12:11 02/05/17 12:45 02/05/17 13:47 Bedside Glucose 116 165 97 Blood Gas Specimen Source Blood arterial Arterial Blood Date Drawn 02/05/2017 1:00:55 PM Arterial Blood pH (Temp corrected) 7.446 Arterial Blood pCO2 (Temp correct) 30.7 L Arterial Blood pO2 (Temp corrected) 95.8 H Arterial Blood HCO3 20.7 L Arterial Blood Base Excess -2.4 Arterial Blood Oxygen Saturation 97.5 Alexis Test ACCEPTAB Arterial Blood Gas Puncture Site Left Radial Arterial Blood Carboxyhemoglobin 0.3 Arterial Blood Methemoglobin 0.2 Blood Gas A-a O2 Differential 154.1 H Oxyhemoglobin Percent 97.0 Total Hemoglobin 12.9 Blood Gas Temperature 37.0 Blood Gas Actual Respiration Rate 16 Blood Gas Modality VENT - CPAP FiO2 40.0 Blood Gas Low PEEP Setting 5.0 Blood Gas Pressure Support 10 Blood Gas Notified Whom KB Blood Gas Notified Time 02/05/2017 1:11:43 PM Test 02/05/17 15:21 02/05/17 16:04 02/05/17 17:02 02/05/17 18:13 Bedside Glucose 120 123 124 103 Test 02/05/17 19:02 02/05/17 20:09 02/05/17 21:04 02/05/17 21:56 Bedside Glucose 107 139 130 120 Test 02/05/17 22:57 02/05/17 23:59 02/06/17 02:39 02/06/17 04:45 Bedside Glucose 107 113 106 White Blood Count 15.5 #H Red Blood Count 4.40 Hemoglobin 11.9 L Hematocrit 36.5 L Mean Corpuscular Volume 83.0 Mean Corpuscular Hemoglobin 27.0 L Mean Corpuscular Hemoglobin Concent 32.6 Red Cell Distribution Width 14.0 Platelet Count 299 Mean Platelet Volume 11.8 H Neutrophils % 82.1 H Lymphocytes % 10.0 L Monocytes % 7.0 Eosinophils % 0.1 Basophils % 0.3 Nucleated Red Blood Cells % 0.0 Neutrophils # 12.7 H Lymphocytes # 1.6 Monocytes # 1.1 H Eosinophils # 0.0 Basophils # 0.0 Nucleated Red Blood Cells # 0.0 Sodium Level 146 H Potassium Level 4.7 Chloride Level 109 Carbon Dioxide Level 31 Anion Gap 11 Blood Urea Nitrogen 14 Creatinine 0.77 Glucose Level 89 # Calcium Level 9.2 Test 02/06/17 06:11 02/06/17 08:52 02/06/17 09:20 Bedside Glucose 73 65 L 143 Medications Medications Current Medications Senna/Docusate Sodium (Senokot-S) 1 tab BID PO Last administered on 02/06/17 08:57; Admin Dose 1 TAB; Start 02/04/17 at 21:00 Simethicone (Mylicon) 80 mg TID PRN PO DISTENSION/GAS/BLOATING; Start 02/04/17 at 14:30 Magnesium Hydroxide (Milk Of Mag) 30 ml BID PRN PO CONSTIPATION; Start at 14:30 Acetaminophen (Tylenol Tab) 1,000 mg Q4H PRN PO TEMP GREATER THAN 100.4F; Start 02/04/17 at 14:30 Oxycodone/ Acetaminophen (Percocet (5/ 325)) 1 tab Q4H PRN PO PAIN LEVEL 1-5 Last administered on 02/05/17 17:54; Admin Dose 1 TAB; Start 02/04/17 at 14:30 Oxycodone/ Acetaminophen (Percocet (5/ 325)) 2 tab Q4H PRN PO PAIN LEVEL 6-10 Last administered on 02/06/17 08:58; Admin Dose 2 TAB; Start 02/04/17 at 14:30 Morphine Sulfate (morphine) 2 mg Q2H PRN IV PAIN LEVEL 1-5; Start 02/04/17 at 14:30 Morphine Sulfate (morphine) 4 mg Q4H PRN IV PAIN LEVEL 6-10 Last administered on 02/05/17 02:05; Admin Dose 4 MG; Start 02/04/17 at 14:30 Ketorolac Tromethamine (Toradol) 15 mg Q6H PRN IV PAIN Last administered on 02:06; Admin Dose 15 MG; Start 02/04/17 at 14:30; Stop 02/07/17 at 14:29 Ondansetron HCl (Zofran Inj) 4 mg Q6H PRN IV NAUSEA AND/OR VOMITING; Start 02/04/17 at 14:30 Diphenhydramine HCl (Benadryl) 25 mg Q6H PRN IV PRURITUS; Start 02/04/17 at 14: 30 Dextrose (D50w Syringe) 25 ml Q15M PRN IV Till BS 80 mg/dL or above x2 Last administered on 02/06/17 09:14; Admin Dose 25 ML; Start 02/04/17 at 17:30 Dextrose (D50w Syringe) 50 ml Q15M PRN IV Till BS 80 mg/dL or above x2; Start 02/04/17 at 17:30 Aspirin (Aspirin) 81 mg DAILY PO Last administered on 02/06/17 08:58; Admin Dose 81 MG; Start 02/06/17 at 09:00 Atorvastatin Calcium (Lipitor) 10 mg QHS PO Last administered on 02/05/17 21: 13; Admin Dose 10 MG; Start 02/05/17 at 21:00 Duloxetine HCl (Cymbalta) 60 mg DAILY PO Last administered on 02/06/17 08:58; Admin Dose 60 MG; Start 02/06/17 at 09:00 Gabapentin (Neurontin) 200 mg BID PO Last administered on 02/06/17 08:58; Admin Dose 200 MG; Start 02/05/17 at 21:00 Loratadine (Claritin) 10 mg DAILY PO Last administered on 02/06/17 08:58; Admin Dose 10 MG; Start 02/06/17 at 09:00 Pramipexole (Mirapex) 0.125 mg HS PO Last administered on 02/05/17 21:12; Admin Dose 0.125 MG; Start 02/05/17 at 21:00 Diagnostic Test (Pha) (Accu-Chek) 1 ea 02 XX ; Start 02/06/17 at 02:00 Insulin Glargine (Lantus) 30 unit DAILY@20 SC Last administered on 02/05/17 22 :00; Admin Dose 30 UNIT; Start 02/05/17 at 22:00 Pantoprazole (Protonix Tab) 40 mg DAILY@06 PO Last administered on 02/06/17 06 :13; Admin Dose 40 MG; Start 02/06/17 at 06:00 Verapamil HCl (Isoptin Sr) 180 mg BID PO Last administered on 02/06/17 08:57; Admin Dose 180 MG; Start 02/05/17 at 21:00 Linagliptin (Tradjenta) 5 mg DAILY PO Last administered on 02/06/17 08:58; Admin Dose 5 MG; Start 02/06/17 at 09:00 MADYSON MIKE MD Feb 06, 2017 10:50
--- NOTE | 2017-02-06 11:26 | CONS ---
Date/Time of Note Date/Time of Note DATE: 02/06/17 TIME: 11:24 Consult Date/Type/Reason Admit Date/Time Feb 04, 2017 at 10:01 Initial Consult Date 02/05/17 Type of Consultation: Pulm Ordering Provider: JEREMIAH CURRAN MD Subjective Doing well post-extubation. Now on RA Objective Vital Signs Date Time Temp Pulse Resp B/P Pulse Ox O2 Delivery O2 Flow Rate FiO2 02/06/17 08:00 75 02/06/17 06:00 14 135/81 94 Room Air 02/06/17 04:00 97.9 02/06/17 03:00 4.0 02/05/17 13:50 35 Intake and Output 02/05/17 02/05/17 02/06/17 15:00 23:00 07:00 Intake Total 955.75 ml 886.5 ml 161 ml Output Total 680 ml 305 ml 1375 ml Balance 275.75 ml 581.5 ml -1214 ml Exam HEENT: Neck supple; no JVD; no LAD CVS: RRR, S1 and S2 CHEST: Clear ABD: Soft, NT, + BS EXT: No c/c/e Results/Medications Result Diagram: 02/06/175 02/06/17 0445 Results 24 hrs Laboratory Tests Test 02/05/17 12:11 02/05/17 12:45 02/05/17 13:47 02/05/17 15:21 Bedside Glucose 165 97 120 Blood Gas Specimen Source Blood arterial Arterial Blood Date Drawn 02/05/2017 1:00:55 PM Arterial Blood pH (Temp corrected) 7.446 Arterial Blood pCO2 (Temp correct) 30.7 L Arterial Blood pO2 (Temp corrected) 95.8 H Arterial Blood HCO3 20.7 L Arterial Blood Base Excess -2.4 Arterial Blood Oxygen Saturation 97.5 Alexis Test ACCEPTAB Arterial Blood Gas Puncture Site Left Radial Arterial Blood Carboxyhemoglobin 0.3 Arterial Blood Methemoglobin 0.2 Blood Gas A-a O2 Differential 154.1 H Oxyhemoglobin Percent 97.0 Total Hemoglobin 12.9 Blood Gas Temperature 37.0 Blood Gas Actual Respiration Rate 16 Blood Gas Modality VENT - CPAP FiO2 40.0 Blood Gas Low PEEP Setting 5.0 Blood Gas Pressure Support 10 Blood Gas Notified Whom KB Blood Gas Notified Time 02/05/2017 1:11:43 PM Test 02/05/17 16:04 02/05/17 17:02 02/05/17 18:13 02/05/17 19:02 Bedside Glucose 123 124 103 107 Test 02/05/17 20:09 02/05/17 21:04 02/05/17 21:56 02/05/17 22:57 Bedside Glucose 139 130 120 107 Test 02/05/17 23:59 02/06/17 02:39 02/06/17 04:45 02/06/17 06:11 Bedside Glucose 113 106 73 White Blood Count 15.5 #H Red Blood Count 4.40 Hemoglobin 11.9 L Hematocrit 36.5 L Mean Corpuscular Volume 83.0 Mean Corpuscular Hemoglobin 27.0 L Mean Corpuscular Hemoglobin Concent 32.6 Red Cell Distribution Width 14.0 Platelet Count 299 Mean Platelet Volume 11.8 H Neutrophils % 82.1 H Lymphocytes % 10.0 L Monocytes % 7.0 Eosinophils % 0.1 Basophils % 0.3 Nucleated Red Blood Cells % 0.0 Neutrophils # 12.7 H Lymphocytes # 1.6 Monocytes # 1.1 H Eosinophils # 0.0 Basophils # 0.0 Nucleated Red Blood Cells # 0.0 Sodium Level 146 H Potassium Level 4.7 Chloride Level 109 Carbon Dioxide Level 31 Anion Gap 11 Blood Urea Nitrogen 14 Creatinine 0.77 Glucose Level 89 # Calcium Level 9.2 Test 02/06/17 08:52 02/06/17 09:20 Bedside Glucose 65 L 143 Medications Current Medications Senna/Docusate Sodium (Senokot-S) 1 tab BID PO Last administered on 02/06/17 08:57; Admin Dose 1 TAB; Start 02/04/17 at 21:00 Simethicone (Mylicon) 80 mg TID PRN PO DISTENSION/GAS/BLOATING; Start 02/04/17 at 14:30 Magnesium Hydroxide (Milk Of Mag) 30 ml BID PRN PO CONSTIPATION; Start at 14:30 Acetaminophen (Tylenol Tab) 1,000 mg Q4H PRN PO TEMP GREATER THAN 100.4F; Start 02/04/17 at 14:30 Oxycodone/ Acetaminophen (Percocet (5/ 325)) 1 tab Q4H PRN PO PAIN LEVEL 1-5 Last administered on 02/05/17 17:54; Admin Dose 1 TAB; Start 02/04/17 at 14:30 Oxycodone/ Acetaminophen (Percocet (5/ 325)) 2 tab Q4H PRN PO PAIN LEVEL 6-10 Last administered on 02/06/17 08:58; Admin Dose 2 TAB; Start 02/04/17 at 14:30 Morphine Sulfate (morphine) 2 mg Q2H PRN IV PAIN LEVEL 1-5; Start 02/04/17 at 14:30 Morphine Sulfate (morphine) 4 mg Q4H PRN IV PAIN LEVEL 6-10 Last administered on 02/05/17 02:05; Admin Dose 4 MG; Start 02/04/17 at 14:30 Ketorolac Tromethamine (Toradol) 15 mg Q6H PRN IV PAIN Last administered on 02:06; Admin Dose 15 MG; Start 02/04/17 at 14:30; Stop 02/07/17 at 14:29 Ondansetron HCl (Zofran Inj) 4 mg Q6H PRN IV NAUSEA AND/OR VOMITING; Start 02/04/17 at 14:30 Diphenhydramine HCl (Benadryl) 25 mg Q6H PRN IV PRURITUS; Start 02/04/17 at 14: 30 Dextrose (D50w Syringe) 25 ml Q15M PRN IV Till BS 80 mg/dL or above x2 Last administered on 02/06/17 09:14; Admin Dose 25 ML; Start 02/04/17 at 17:30 Dextrose (D50w Syringe) 50 ml Q15M PRN IV Till BS 80 mg/dL or above x2; Start 02/04/17 at 17:30 Aspirin (Aspirin) 81 mg DAILY PO Last administered on 02/06/17 08:58; Admin Dose 81 MG; Start 02/06/17 at 09:00 Atorvastatin Calcium (Lipitor) 10 mg QHS PO Last administered on 02/05/17 21: 13; Admin Dose 10 MG; Start 02/05/17 at 21:00 Duloxetine HCl (Cymbalta) 60 mg DAILY PO Last administered on 02/06/17 08:58; Admin Dose 60 MG; Start 02/06/17 at 09:00 Gabapentin (Neurontin) 200 mg BID PO Last administered on 02/06/17 08:58; Admin Dose 200 MG; Start 02/05/17 at 21:00 Loratadine (Claritin) 10 mg DAILY PO Last administered on 02/06/17 08:58; Admin Dose 10 MG; Start 02/06/17 at 09:00 Pramipexole (Mirapex) 0.125 mg HS PO Last administered on 02/05/17 21:12; Admin Dose 0.125 MG; Start 02/05/17 at 21:00 Diagnostic Test (Pha) (Accu-Chek) 1 ea 02 XX ; Start 02/06/17 at 02:00 Insulin Glargine (Lantus) 30 unit DAILY@20 SC Last administered on 02/05/17 22 :00; Admin Dose 30 UNIT; Start 02/05/17 at 22:00 Pantoprazole (Protonix Tab) 40 mg DAILY@06 PO Last administered on 02/06/17 06 :13; Admin Dose 40 MG; Start 02/06/17 at 06:00 Verapamil HCl (Isoptin Sr) 180 mg BID PO Last administered on 02/06/17 08:57; Admin Dose 180 MG; Start 02/05/17 at 21:00 Linagliptin (Tradjenta) 5 mg DAILY PO Last administered on 02/06/17 08:58; Admin Dose 5 MG; Start 02/06/17 at 09:00 Assessment/Plan Additional Assessment/Plan IMP: 1. Post-op Resp Failure: due to hypoventilation--now resolved. RECS: 1. Incentive spirometry 2. OOB to chair 3. Avoid sedatives/narcotics AYUSH ROWE MD Feb 06, 2017 11:26
--- NOTE | 2017-02-06 19:30 | CONS ---
Date/Time of Note Date/Time of Note DATE: 02/06/17 TIME: 12:30 Late entry Assessment/Plan Assessment/Plan Problems: (1) Type 2 diabetes mellitus with hyperglycemia Status: Chronic Comment: Overall decent glycemic control. Patient has started oral intake with prandial and basal insulin coverage. Will monitor and adjust as needed. Qualifiers: Diabetes mellitus longterm insulin use: with longterm use Qualified Code : E11.65 - Type 2 diabetes mellitus with hyperglycemia, with long-term current use of insulin (2) Essential (primary) hypertension Status: Chronic Comment: decent control (3) Fibromyalgia Status: Chronic Comment: no new issues (4) Restless leg syndrome Status: Chronic Comment: continues to experience restlessness. (5) Respiratory failure, post-operative Status: Resolved (6) Status post reverse arthroplasty of right shoulder Status: Acute Comment: pain and post op management per ortho team Additional Assessment/Plan transfer to med-surg floor. Remove oley catheter. Obtain PT consult Consultation Date/Type/Reason Admit Date/Time Feb 04, 2017 at 10:01 Initial Consult Date 02/05/17 Type of Consultation: Endocrine/Internal Medicine Referring Provider: JEREMIAH CURRAN MD 24 HR Interval Summary Free Text/Dictation Restless. Yeung uncomfortable. Pain not well controlled Exam/Review of Systems Vital Signs Vitals Vital Signs Date Time Temp Pulse Resp B/P Pulse Ox O2 Delivery O2 Flow Rate FiO2 02/06/17 16:34 97.9 68 18 128/66 97 02/06/17 14:00 Room Air 02/06/17 03:00 4.0 02/05/17 13:50 35 Intake and Output 02/05/17 02/05/17 02/06/17 14:59 22:59 06:59 Intake Total 1079.458 ml 885.0 ml 264 ml Output Total 755 ml 345 ml 1375 ml Balance 324.458 ml 540.0 ml -1111 ml Exam Constitutional: alert, obese, oriented Neck: supple Respiratory: clear to auscultation Cardiovascular: regular rate and rhythm Gastrointestinal: soft Musculoskeletal: nl extremities to inspection Extremities: other (right arm in sling) Results POC glucose and labs reviewed Result Diagram: 02/06/17 0445 02/06/17 0445 Results 24 hrs Laboratory Tests Test 02/05/17 20:09 02/05/17 21:04 02/05/17 21:56 02/05/17 22:57 Bedside Glucose 139 130 120 107 Test 02/05/17 23:59 02/06/17 02:39 02/06/17 04:45 02/06/17 06:11 Bedside Glucose 113 106 73 White Blood Count 15.5 #H Red Blood Count 4.40 Hemoglobin 11.9 L Hematocrit 36.5 L Mean Corpuscular Volume 83.0 Mean Corpuscular Hemoglobin 27.0 L Mean Corpuscular Hemoglobin Concent 32.6 Red Cell Distribution Width 14.0 Platelet Count 299 Mean Platelet Volume 11.8 H Neutrophils % 82.1 H Lymphocytes % 10.0 L Monocytes % 7.0 Eosinophils % 0.1 Basophils % 0.3 Nucleated Red Blood Cells % 0.0 Neutrophils # 12.7 H Lymphocytes # 1.6 Monocytes # 1.1 H Eosinophils # 0.0 Basophils # 0.0 Nucleated Red Blood Cells # 0.0 Sodium Level 146 H Potassium Level 4.7 Chloride Level 109 Carbon Dioxide Level 31 Anion Gap 11 Blood Urea Nitrogen 14 Creatinine 0.77 Glucose Level 89 # Calcium Level 9.2 Test 02/06/17 08:52 02/06/17 09:20 02/06/17 12:22 02/06/17 17:44 Bedside Glucose 65 L 143 119 108 Medications Medications Current Medications Senna/Docusate Sodium (Senokot-S) 1 tab BID PO Last administered on 02/06/17 08:57; Admin Dose 1 TAB; Start 02/04/17 at 21:00 Simethicone (Mylicon) 80 mg TID PRN PO DISTENSION/GAS/BLOATING; Start 02/04/17 at 14:30 Magnesium Hydroxide (Milk Of Mag) 30 ml BID PRN PO CONSTIPATION; Start at 14:30 Acetaminophen (Tylenol Tab) 1,000 mg Q4H PRN PO TEMP GREATER THAN 100.4F; Start 02/04/17 at 14:30 Oxycodone/ Acetaminophen (Percocet (5/ 325)) 1 tab Q4H PRN PO PAIN LEVEL 1-5 Last administered on 02/05/17 17:54; Admin Dose 1 TAB; Start 02/04/17 at 14:30 Oxycodone/ Acetaminophen (Percocet (5/ 325)) 2 tab Q4H PRN PO PAIN LEVEL 6-10 Last administered on 02/06/17 08:58; Admin Dose 2 TAB; Start 02/04/17 at 14:30 Morphine Sulfate (morphine) 2 mg Q2H PRN IV PAIN LEVEL 1-5; Start 02/04/17 at 14:30 Morphine Sulfate (morphine) 4 mg Q4H PRN IV PAIN LEVEL 6-10 Last administered on 02/05/17 02:05; Admin Dose 4 MG; Start 02/04/17 at 14:30 Ketorolac Tromethamine (Toradol) 15 mg Q6H PRN IV PAIN Last administered on 02:06; Admin Dose 15 MG; Start 02/04/17 at 14:30; Stop 02/07/17 at 14:29 Ondansetron HCl (Zofran Inj) 4 mg Q6H PRN IV NAUSEA AND/OR VOMITING; Start 02/04/17 at 14:30 Diphenhydramine HCl (Benadryl) 25 mg Q6H PRN IV PRURITUS; Start 02/04/17 at 14: 30 Dextrose (D50w Syringe) 25 ml Q15M PRN IV Till BS 80 mg/dL or above x2 Last administered on 02/06/17 09:14; Admin Dose 25 ML; Start 02/04/17 at 17:30 Dextrose (D50w Syringe) 50 ml Q15M PRN IV Till BS 80 mg/dL or above x2; Start 02/04/17 at 17:30 Aspirin (Aspirin) 81 mg DAILY PO Last administered on 02/06/17 08:58; Admin Dose 81 MG; Start 02/06/17 at 09:00 Atorvastatin Calcium (Lipitor) 10 mg QHS PO Last administered on 02/05/17 21: 13; Admin Dose 10 MG; Start 02/05/17 at 21:00 Duloxetine HCl (Cymbalta) 60 mg DAILY PO Last administered on 02/06/17 08:58; Admin Dose 60 MG; Start 02/06/17 at 09:00 Gabapentin (Neurontin) 200 mg BID PO Last administered on 02/06/17 08:58; Admin Dose 200 MG; Start 02/05/17 at 21:00 Loratadine (Claritin) 10 mg DAILY PO Last administered on 02/06/17 08:58; Admin Dose 10 MG; Start 02/06/17 at 09:00 Pramipexole (Mirapex) 0.125 mg HS PO Last administered on 02/05/17 21:12; Admin Dose 0.125 MG; Start 02/05/17 at 21:00 Diagnostic Test (Pha) (Accu-Chek) 1 ea 02 XX ; Start 02/06/17 at 02:00 Insulin Glargine (Lantus) 30 unit DAILY@20 SC Last administered on 02/05/17 22 :00; Admin Dose 30 UNIT; Start 02/05/17 at 22:00 Pantoprazole (Protonix Tab) 40 mg DAILY@06 PO Last administered on 02/06/17 06 :13; Admin Dose 40 MG; Start 02/06/17 at 06:00 Verapamil HCl (Isoptin Sr) 180 mg BID PO Last administered on 02/06/17 08:57; Admin Dose 180 MG; Start 02/05/17 at 21:00 Linagliptin (Tradjenta) 5 mg DAILY PO Last administered on 02/06/17 08:58; Admin Dose 5 MG; Start 02/06/17 at 09:00 MARISA MACDONALD MD Feb 06, 2017 19:30
[2017-02-06] MEDS: ATORVASTATIN 10 MG TAB PO SCH (20:43)
[2017-02-06] MEDS: PRAMIPEXOLE 0.125 MG TAB PO SCH (20:45)
[2017-02-06] MEDS: INSULIN GLARGINE [LANtus] 3 ML PEN SC SCH (20:55)
[2017-02-07 01:34] VITALS: BP 128/74; PULSE 78; RESP 18
[2017-02-07] MEDS: ACCU-CHEK XX SCH (01:35)
[2017-02-07] MEDS: PANTOPRAZOLE (EC) 40 MG TAB PO SCH (04:47)
[2017-02-07] MEDS: OXYCODONE/ACETAMINOPHEN (5/325) TAB PO PRN ×4 (04:47→18:10)
[2017-02-07 07:48] VITALS: BP 160/76; RESP 20
[2017-02-07] MEDS: INSULIN ASPART [NOVOLOG] 3 ML PEN SC SCH ×7 (07:50→21:00)
[2017-02-07] MEDS: DULOXETINE 30 MG CAP DR PO SCH (08:17)
[2017-02-07] MEDS: LORATADINE 10 MG TAB PO SCH (08:17)
[2017-02-07] MEDS: ASPIRIN 81 MG TAB PO SCH (08:17)
[2017-02-07] MEDS: SENNA/DOCUSATE NA (8.6MG/50MG) TAB PO SCH ×2 (08:17→20:29)
[2017-02-07] MEDS: GABAPENTIN 100 MG CAP PO SCH ×2 (08:18→20:30)
[2017-02-07] MEDS: VERAPAMIL (SR) 180 MG TAB PO SCH ×2 (08:18→20:32)
[2017-02-07] MEDS: LINAGLIPTIN 5 MG TABLET PO SCH (08:19)
--- NOTE | 2017-02-07 08:45 | PN ---
Date/Time of Note Date/Time of Note DATE: 02/07/17 TIME: 08:44 24 hour Interval Summary Patient is awake and alert. She is comfortable this morning. Awaiting transfer to [facility] Physical Exam Physical examination: Her wound is clean and dry. She is neurologically intact. She has good passive motion her active motion is already about 90 of forward flexion. There are no signs of DVT. Vital Signs Date Time Temp Pulse Resp B/P Pulse Ox O2 Delivery O2 Flow Rate FiO2 02/07/17 07:48 98.3 74 20 160/76 96 02/07/17 06:07 2.0 27 02/07/17 01:34 Nasal Cannula Intake and Output 02/06/17 02/06/17 02/07/17 15:00 23:00 07:00 Intake Total 650 ml 150 ml 1100 ml Output Total 535 ml 350 ml 1000 ml Balance 115 ml -200 ml 100 ml VTE Prophylaxis VTE Prophylaxis Intervention: SCD's Lines/Catheters IV Catheter Type: Saline Lock Yeung in Place: No Results Result Diagram: 02/06/17 0445 02/06/17 0445 Results 24hrs Laboratory Tests Test 02/06/17 08:52 02/06/17 09:20 02/06/17 12:22 02/06/17 17:44 Bedside Glucose 65 L 143 119 108 Test 02/06/17 20:41 Bedside Glucose 102 Assessment/Plan Assessment/Plan Assessment: Status post total shoulder revision with acute respiratory collapse now resolved. Plan: She will be discharged to [facility] once placement is available. Medications Medications Home Meds Reported Medications Cyanocobalamin* (Vitamin B12*) 500 Mcg Tab, 1000 MCG PO DAILY, TAB 02/04/17 Cholecalciferol (Vitamin D3) (Vitamin D-3) 2,000 Unit Tablet, 2000 UNIT PO DAILY , TAB 02/04/17 Cetirizine Hcl* (Cetirizine Hcl*) 10 Mg Tablet, 10 MG PO DAILY, #30 TAB 02/04/17 Pramipexole* (Pramipexole*) 0.125 Mg Tablet, 0.125 MG PO HS, TAB 02/04/17 Gabapentin* (Gabapentin*) 100 Mg Capsule, 200 MG PO BID, #180 CAP 02/04/17 Oxycodone HCl/Acetaminophen (Percocet 7.5-325 mg Tablet) 1 Each Tablet, 1 EACH PO Q8 Y for PAIN, TAB 02/04/17 Verapamil Hcl* (Verapamil ER*) 180 Mg Tablet.er, 180 MG PO BID, TAB.SA 02/04/17 Insulin Aspart* (Novolog Insulin Pen*) 100 Unit/Ml Soln, 12 UNIT SC WITH MEALS, EA 02/04/17 Insulin Glargine,Hum.rec.anlog (Toujeo Solostar) 300 Unit/1 Ml Insuln.pen, 34 UNIT SQ QHS 02/04/17 Atorvastatin Calcium (Atorvastatin Calcium) 10 Mg Tablet, 10 MG PO QHS, #30 TAB 02/04/17 Zolpidem Tartrate* (Zolpidem Tartrate*) 10 Mg Tablet, 10 MG PO QHS Y for INSOMNIA, #30 TAB 02/04/17 Duloxetine Hcl* (Duloxetine Hcl*) 60 Mg Capsule.dr, 60 MG PO DAILY, #30 CAP 11/12/16 Discontinued Reported Medications [pranpexole] No Conflict Check, 0.125 QHS 11/12/16 [trujeo] No Conflict Check, 300 11/12/16 Insulin Aspart (Novolog FlexPen) 100 Unit/1 Ml Insuln.pen, 100 SC SLIDING SCALE AC, EA 11/12/16 Gabapentin* (Gabapentin*) 100 Mg Capsule, 100 MG PO TID, #90 CAP 11/12/16 Duloxetine Hcl* (Cymbalta*) 60 Mg Capsule.dr, 60 MG PO DAILY, CAP 11/12/16 Atorvastatin* (Atorvastatin*) 40 Mg Tablet, 10 MG PO QHS, #30 TAB 11/12/16 Aspirin* (Aspirin* Chew) 81 Mg Tab.chew, 81 MG PO DAILY, TAB.CHEW 11/12/16 Zolpidem Tartrate* (Ambien*) 5 Mg Tablet, 5 MG PO QHS Y for INSOMNIA, #30 TAB 11/12/16 JEREMIAH CURRAN MD Feb 07, 2017 08:45
--- NOTE | 2017-02-07 08:47 | DS ---
Date/Time of Note Date/Time of Note DATE: 02/07/17 TIME: 08:45 Discharge Summary Admission/Discharge Info Admit Date/Time Feb 04, 2017 at 10:01 Discharge Date/Time Pending approval for transfer to [facility] [place] Discharge Diagnosis Failed right reverse total shoulder replacement Patient Condition: Good [facility] Procedures Revision of right reverse total shoulder replacement Hospital Course Patient was admitted and underwent an uncomplicated procedure. Postoperatively , she developed acute exacerbation of a significant ongoing respiratory issue. She required intubation overnight and observation in the intensive care unit. Following stabilization, she was extubated and comfortably sent back up to the [facility] floor. Postoperative day #2 she was afebrile wound is clean and dry she was awake and alert. She is to be discharged to the [facility] [place] once the position is available. Home Meds Reported Medications Cyanocobalamin* (Vitamin B12*) 500 Mcg Tab, 1000 MCG PO DAILY, TAB 02/04/17 Cholecalciferol (Vitamin D3) (Vitamin D-3) 2,000 Unit Tablet, 2000 UNIT PO DAILY , TAB 02/04/17 Cetirizine Hcl* (Cetirizine Hcl*) 10 Mg Tablet, 10 MG PO DAILY, #30 TAB 02/04/17 Pramipexole* (Pramipexole*) 0.125 Mg Tablet, 0.125 MG PO HS, TAB 02/04/17 Gabapentin* (Gabapentin*) 100 Mg Capsule, 200 MG PO BID, #180 CAP 02/04/17 Oxycodone HCl/Acetaminophen (Percocet 7.5-325 mg Tablet) 1 Each Tablet, 1 EACH PO Q8 Y for PAIN, TAB 02/04/17 Verapamil Hcl* (Verapamil ER*) 180 Mg Tablet.er, 180 MG PO BID, TAB.SA 02/04/17 Insulin Aspart* (Novolog Insulin Pen*) 100 Unit/Ml Soln, 12 UNIT SC WITH MEALS, EA 02/04/17 Insulin Glargine,Hum.rec.anlog (Melvina Lowostcuate) 300 Unit/1 Ml Insuln.pen, 34 UNIT SQ QHS 02/04/17 Atorvastatin Calcium (Atorvastatin Calcium) 10 Mg Tablet, 10 MG PO QHS, #30 TAB 02/04/17 Zolpidem Tartrate* (Zolpidem Tartrate*) 10 Mg Tablet, 10 MG PO QHS Y for INSOMNIA, #30 TAB 02/04/17 Duloxetine Hcl* (Duloxetine Hcl*) 60 Mg Capsule.dr, 60 MG PO DAILY, #30 CAP 11/12/16 Discontinued Reported Medications [pranpexole] No Conflict Check, 0.125 QHS 11/12/16 [trujeo] No Conflict Check, 300 11/12/16 Insulin Aspart (Novolog FlexPen) 100 Unit/1 Ml Insuln.pen, 100 SC SLIDING SCALE AC, EA 11/12/16 Gabapentin* (Gabapentin*) 100 Mg Capsule, 100 MG PO TID, #90 CAP 11/12/16 Duloxetine Hcl* (Cymbalta*) 60 Mg Capsule.dr, 60 MG PO DAILY, CAP 11/12/16 Atorvastatin* (Atorvastatin*) 40 Mg Tablet, 10 MG PO QHS, #30 TAB 11/12/16 Aspirin* (Aspirin* Chew) 81 Mg Tab.chew, 81 MG PO DAILY, TAB.CHEW 11/12/16 Zolpidem Tartrate* (Ambien*) 5 Mg Tablet, 5 MG PO QHS Y for INSOMNIA, #30 TAB 11/12/16 Follow-up Plan 2 weeks Primary Care Provider Not On Staff Doctor Pending Labs Laboratory Tests Test 02/06/17 08:52 02/06/17 09:20 02/06/17 12:22 02/06/17 17:44 Bedside Glucose 65mg/dL (70-220) 143mg/dL (70-220) 119mg/dL (70-220) 108mg/dL (70-220) Test 02/06/17 20:41 Bedside Glucose 102mg/dL (70-220) JEREMIAH CURRAN MD Feb 07, 2017 08:47
[2017-02-07 14:03] VITALS: BP 107/57; RESP 20
--- NOTE | 2017-02-07 14:56 | CONS ---
Date/Time of Note Date/Time of Note DATE: 02/07/17 TIME: 14:53 Assessment/Plan Assessment/Plan Problems: (1) Type 2 diabetes mellitus with hyperglycemia Status: Chronic Qualifiers: Diabetes mellitus long goods drier insulin use: with long goods drier use Qualified Code : E11.65 - Type 2 diabetes mellitus with hyperglycemia, with long-term current use of insulin (2) Status post reverse arthroplasty of right shoulder Status: Acute Comment: revision (3) Essential (primary) hypertension Status: Chronic (4) Fibromyalgia Status: Chronic Additional Assessment/Plan clinically stable Consultation Date/Type/Reason Admit Date/Time Feb 04, 2017 at 10:01 Initial Consult Date 02/05/17 Type of Consultation: Endocrine/Internal Medicine Referring Provider: JEREMIAH CURRAN MD 24 HR Interval Summary Free Text/Dictation Happy blood sugars are better. Still complain of shoulder pain Exam/Review of Systems Vital Signs Vitals Vital Signs Date Time Temp Pulse Resp B/P Pulse Ox O2 Delivery O2 Flow Rate FiO2 02/07/17 14:03 98.7 57 20 107/57 96 02/07/17 06:07 2.0 27 02/07/17 01:34 Nasal Cannula Intake and Output 02/06/17 02/06/17 02/07/17 15:00 23:00 07:00 Intake Total 650 ml 150 ml 1100 ml Output Total 535 ml 350 ml 1000 ml Balance 115 ml -200 ml 100 ml Exam Constitutional: alert, obese, oriented Neck: supple Respiratory: clear to auscultation Cardiovascular: regular rate and rhythm Gastrointestinal: soft Musculoskeletal: nl extremities to inspection Results POC glucose reviewed Result Diagram: 02/06/17 0445 02/06/175 Results 24 hrs Laboratory Tests Test 02/06/17 17:44 02/06/17 20:41 02/07/17 09:04 02/07/17 12:48 Bedside Glucose 108 102 115 96 Medications Medications Current Medications Senna/Docusate Sodium (Senokot-S) 1 tab BID PO Last administered on 02/07/17t 08:17; Admin Dose 1 TAB; Start 02/04/17 at 21:00 Simethicone (Mylicon) 80 mg TID PRN PO DISTENSION/GAS/BLOATING; Start 02/04/17 at 14:30 Magnesium Hydroxide (Milk Of Mag) 30 ml BID PRN PO CONSTIPATION; Start at 14:30 Acetaminophen (Tylenol Tab) 1,000 mg Q4H PRN PO TEMP GREATER THAN 100.4F; Start 02/04/17 at 14:30 Oxycodone/ Acetaminophen (Percocet (5/ 325)) 1 tab Q4H PRN PO PAIN LEVEL 1-5 Last administered on 02/07/17 08:16; Admin Dose 1 TAB; Start 02/04/17 at 14:30 Oxycodone/ Acetaminophen (Percocet (5/ 325)) 2 tab Q4H PRN PO PAIN LEVEL 6-10 Last administered on 02/07/17 04:47; Admin Dose 2 TAB; Start 02/04/17 at 14:30 Morphine Sulfate (morphine) 2 mg Q2H PRN IV PAIN LEVEL 1-5; Start 02/04/17 at 14:30 Morphine Sulfate (morphine) 4 mg Q4H PRN IV PAIN LEVEL 6-10 Last administered on 02/05/17 02:05; Admin Dose 4 MG; Start 02/04/17 at 14:30 Ondansetron HCl (Zofran Inj) 4 mg Q6H PRN IV NAUSEA AND/OR VOMITING; Start 02/04/17 at 14:30 Diphenhydramine HCl (Benadryl) 25 mg Q6H PRN IV PRURITUS; Start 02/04/17 at 14: 30 Dextrose (D50w Syringe) 25 ml Q15M PRN IV Till BS 80 mg/dL or above x2 Last administered on 02/06/17 09:14; Admin Dose 25 ML; Start 02/04/17 at 17:30 Dextrose (D50w Syringe) 50 ml Q15M PRN IV Till BS 80 mg/dL or above x2; Start 02/04/17 at 17:30 Aspirin (Aspirin) 81 mg DAILY PO Last administered on 02/07/17 08:17; Admin Dose 81 MG; Start 02/06/17 at 09:00 Atorvastatin Calcium (Lipitor) 10 mg QHS PO Last administered on 02/06/17 20: 43; Admin Dose 10 MG; Start 02/05/17 at 21:00 Duloxetine HCl (Cymbalta) 60 mg DAILY PO Last administered on 02/07/17 08:17 ; Admin Dose 60 MG; Start 02/06/17 at 09:00 Gabapentin (Neurontin) 200 mg BID PO Last administered on 02/07/17 08:18; Admin Dose 200 MG; Start 02/05/17 at 21:00 Loratadine (Claritin) 10 mg DAILY PO Last administered on 02/07/17 08:17; Admin Dose 10 MG; Start 02/06/17 at 09:00 Pramipexole (Mirapex) 0.125 mg HS PO Last administered on 02/06/17 20:45; Admin Dose 0.125 MG; Start 02/05/17 at 21:00 Diagnostic Test (Pha) (Accu-Chek) 1 ea 02 XX ; Start 02/06/17 at 02:00 Insulin Glargine (Lantus) 30 unit DAILY@20 SC Last administered on 02/06/17 20 :55; Admin Dose 30 UNIT; Start 02/05/17 at 22:00 Pantoprazole (Protonix Tab) 40 mg DAILY@06 PO Last administered on 02/07/17 04:47; Admin Dose 40 MG; Start 02/06/17 at 06:00 Verapamil HCl (Isoptin Sr) 180 mg BID PO Last administered on 02/07/17 08:18 ; Admin Dose 180 MG; Start 02/05/17 at 21:00 Linagliptin (Tradjenta) 5 mg DAILY PO Last administered on 02/07/17 08:19; Admin Dose 5 MG; Start 02/06/17 at 09:00 MARISA MACDONALD MD Feb 07, 2017 14:56
--- NOTE | 2017-02-07 17:23 | CONS ---
Date/Time of Note Date/Time of Note DATE: 02/07/17 TIME: 17:22 Consult Date/Type/Reason Admit Date/Time Feb 04, 2017 at 10:01 Initial Consult Date 02/05/17 Type of Consultation: Pulm Ordering Provider: JEREMIAH CURRAN MD Subjective No events. Objective Vital Signs Date Time Temp Pulse Resp B/P Pulse Ox O2 Delivery O2 Flow Rate FiO2 02/07/17 14:03 98.7 57 20 107/57 96 02/07/17 06:07 2.0 27 02/07/17 01:34 Nasal Cannula Intake and Output 02/06/17 02/06/17 02/07/17 15:00 23:00 07:00 Intake Total 650 ml 150 ml 1100 ml Output Total 535 ml 350 ml 1000 ml Balance 115 ml -200 ml 100 ml Exam HEENT: Neck supple; no JVD; no LAD CVS: RRR, S1 and S2 CHEST: Clear ABD: Soft, NT, + BS EXT: No c/c/e Results/Medications Result Diagram: 02/06/1744402/06/17444 Results 24 hrs Laboratory Tests Test 02/06/17 17:44 02/06/17 20:41 02/07/17 09:04 02/07/17 12:48 Bedside Glucose 108 102 115 96 Medications Current Medications Senna/Docusate Sodium (Senokot-S) 1 tab BID PO Last administered on 02/07/17 08:17; Admin Dose 1 TAB; Start 02/04/17 at 21:00 Simethicone (Mylicon) 80 mg TID PRN PO DISTENSION/GAS/BLOATING; Start 02/04/17 at 14:30 Magnesium Hydroxide (Milk Of Mag) 30 ml BID PRN PO CONSTIPATION; Start at 14:30 Acetaminophen (Tylenol Tab) 1,000 mg Q4H PRN PO TEMP GREATER THAN 100.4F; Start 02/04/17 at 14:30 Oxycodone/ Acetaminophen (Percocet (5/ 325)) 1 tab Q4H PRN PO PAIN LEVEL 1-5 Last administered on 02/07/17 15:47; Admin Dose 1 TAB; Start 02/04/17 at 14:30 Oxycodone/ Acetaminophen (Percocet (5/ 325)) 2 tab Q4H PRN PO PAIN LEVEL 6-10 Last administered on 02/07/17 04:47; Admin Dose 2 TAB; Start 02/04/17 at 14:30 Morphine Sulfate (morphine) 2 mg Q2H PRN IV PAIN LEVEL 1-5; Start 02/04/17 at 14:30 Morphine Sulfate (morphine) 4 mg Q4H PRN IV PAIN LEVEL 6-10 Last administered on 02/05/17 02:05; Admin Dose 4 MG; Start 02/04/17 at 14:30 Ondansetron HCl (Zofran Inj) 4 mg Q6H PRN IV NAUSEA AND/OR VOMITING; Start 02/04/17 at 14:30 Diphenhydramine HCl (Benadryl) 25 mg Q6H PRN IV PRURITUS; Start 02/04/17 at 14: 30 Dextrose (D50w Syringe) 25 ml Q15M PRN IV Till BS 80 mg/dL or above x2 Last administered on 02/06/17 09:14; Admin Dose 25 ML; Start 02/04/17 at 17:30 Dextrose (D50w Syringe) 50 ml Q15M PRN IV Till BS 80 mg/dL or above x2; Start 02/04/17 at 17:30 Aspirin (Aspirin) 81 mg DAILY PO Last administered on 02/07/17 08:17; Admin Dose 81 MG; Start 02/06/17 at 09:00 Atorvastatin Calcium (Lipitor) 10 mg QHS PO Last administered on 02/06/17 20: 43; Admin Dose 10 MG; Start 02/05/17 at 21:00 Duloxetine HCl (Cymbalta) 60 mg DAILY PO Last administered on 02/07/17 08:17 ; Admin Dose 60 MG; Start 02/06/17 at 09:00 Gabapentin (Neurontin) 200 mg BID PO Last administered on 02/07/17 08:18; Admin Dose 200 MG; Start 02/05/17 at 21:00 Loratadine (Claritin) 10 mg DAILY PO Last administered on 02/07/17 08:17; Admin Dose 10 MG; Start 02/06/17 at 09:00 Pramipexole (Mirapex) 0.125 mg HS PO Last administered on 02/06/17 20:45; Admin Dose 0.125 MG; Start 02/05/17 at 21:00 Diagnostic Test (Pha) (Accu-Chek) 1 ea 02 XX ; Start 02/06/17 at 02:00 Insulin Glargine (Lantus) 30 unit DAILY@20 SC Last administered on 02/06/17 20 :55; Admin Dose 30 UNIT; Start 02/05/17 at 22:00 Pantoprazole (Protonix Tab) 40 mg DAILY@06 PO Last administered on 02/07/17 04:47; Admin Dose 40 MG; Start 02/06/17 at 06:00 Verapamil HCl (Isoptin Sr) 180 mg BID PO Last administered on 02/07/17 08:18 ; Admin Dose 180 MG; Start 02/05/17 at 21:00 Linagliptin (Tradjenta) 5 mg DAILY PO Last administered on 02/07/17 08:19; Admin Dose 5 MG; Start 02/06/17 at 09:00 Assessment/Plan Additional Assessment/Plan IMP: 1. Post-op Resp Failure: due to hypoventilation--now resolved. RECS: 1. Incentive spirometry 2. OOB to chair 3. Titrate off O2 as tolerated AYUSH ROWE MD Feb 07, 2017 17:23
[2017-02-07] MEDS: INSULIN GLARGINE [LANtus] 3 ML PEN SC SCH (20:00)
[2017-02-07] MEDS: PRAMIPEXOLE 0.125 MG TAB PO SCH (20:29)
[2017-02-07] MEDS: ATORVASTATIN 10 MG TAB PO SCH (20:29)
[2017-02-07 20:40] VITALS: BP 110/59; RESP 18
[2017-02-08] MEDS: ACCU-CHEK XX SCH (02:00)
[2017-02-08 02:18] VITALS: BP 154/71; RESP 18
[2017-02-08] MEDS: OXYCODONE/ACETAMINOPHEN (5/325) TAB PO PRN ×3 (04:27→15:31)
[2017-02-08] MEDS: PANTOPRAZOLE (EC) 40 MG TAB PO SCH (05:05)
--- NOTE | 2017-02-08 06:50 | PN ---
Date/Time of Note Date/Time of Note DATE: 02/08/17 TIME: 06:49 24 hour Interval Summary Patient is awake and alert moving shoulder nicely with no significant pain. Physical Exam Physical examination: Her wound is clean and dry. Her active motion is about 100 of forward flexion. There are no signs of DVT. Vital Signs Date Time Temp Pulse Resp B/P Pulse Ox O2 Delivery O2 Flow Rate FiO2 02/08/17 02:18 97.8 73 18 154/71 96 02/08/17 00:19 2.0 02/07/17 06:07 27 02/07/17 01:34 Nasal Cannula Intake and Output 02/07/17 02/07/17 02/08/17 15:00 23:00 07:00 Intake Total 800 ml 840 ml Output Total 1000 ml Balance 800 ml -160 ml VTE Prophylaxis VTE Prophylaxis Intervention: SCD's Lines/Catheters IV Catheter Type: Saline Lock Yeung in Place: No Results Result Diagram: 02/06/17 0445 02/06/17 0445 Results 24hrs Laboratory Tests Test 02/07/17 09:04 02/07/17 12:48 02/07/17 18:13 02/07/17 20:26 Bedside Glucose 115 96 135 103 Assessment/Plan Chief Complaint/Hosp Course Patient was admitted and underwent an uncomplicated procedure. Postoperatively , she developed acute exacerbation of a significant ongoing respiratory issue. She required intubation overnight and observation in the intensive care unit. Following stabilization, she was extubated and comfortably sent back up to the [facility] floor. Postoperative day #2 she was afebrile wound is clean and dry she was awake and alert. She is to be discharged to the [facility] once the position is available. Problems: Assessment/Plan Assessment: Status post revision of reverse total shoulder Plan: She will be discharged to the [facility] today follow-up in the office in 2 weeks Medications Medications Home Meds Reported Medications Cyanocobalamin* (Vitamin B12*) 500 Mcg Tab, 1000 MCG PO DAILY, TAB 02/04/17 Cholecalciferol (Vitamin D3) (Vitamin D-3) 2,000 Unit Tablet, 2000 UNIT PO DAILY , TAB 02/04/17 Cetirizine Hcl* (Cetirizine Hcl*) 10 Mg Tablet, 10 MG PO DAILY, #30 TAB 02/04/17 Pramipexole* (Pramipexole*) 0.125 Mg Tablet, 0.125 MG PO HS, TAB 02/04/17 Gabapentin* (Gabapentin*) 100 Mg Capsule, 200 MG PO BID, #180 CAP 02/04/17 Oxycodone HCl/Acetaminophen (Percocet 7.5-325 mg Tablet) 1 Each Tablet, 1 EACH PO Q8 Y for PAIN, TAB 02/04/17 Verapamil Hcl* (Verapamil ER*) 180 Mg Tablet.er, 180 MG PO BID, TAB.SA 02/04/17 Insulin Aspart* (Novolog Insulin Pen*) 100 Unit/Ml Soln, 12 UNIT SC WITH MEALS, EA 02/04/17 Insulin Glargine,Hum.rec.anlog (Toujeo Solostar) 300 Unit/1 Ml Insuln.pen, 34 UNIT SQ QHS 02/04/17 Atorvastatin Calcium (Atorvastatin Calcium) 10 Mg Tablet, 10 MG PO QHS, #30 TAB 02/04/17 Zolpidem Tartrate* (Zolpidem Tartrate*) 10 Mg Tablet, 10 MG PO QHS Y for INSOMNIA, #30 TAB 02/04/17 Duloxetine Hcl* (Duloxetine Hcl*) 60 Mg Capsule.dr, 60 MG PO DAILY, #30 CAP 11/12/16 Discontinued Reported Medications [pranpexole] No Conflict Check, 0.125 QHS 11/12/16 [trujeo] No Conflict Check, 300 11/12/16 Insulin Aspart (Novolog FlexPen) 100 Unit/1 Ml Insuln.pen, 100 SC SLIDING SCALE AC, EA 11/12/16 Gabapentin* (Gabapentin*) 100 Mg Capsule, 100 MG PO TID, #90 CAP 11/12/16 Duloxetine Hcl* (Cymbalta*) 60 Mg Capsule.dr, 60 MG PO DAILY, CAP 11/12/16 Atorvastatin* (Atorvastatin*) 40 Mg Tablet, 10 MG PO QHS, #30 TAB 11/12/16 Aspirin* (Aspirin* Chew) 81 Mg Tab.chew, 81 MG PO DAILY, TAB.CHEW 11/12/16 Zolpidem Tartrate* (Ambien*) 5 Mg Tablet, 5 MG PO QHS Y for INSOMNIA, #30 TAB 11/12/16 JEREMIAH CURRAN MD Feb 08, 2017 06:50
[2017-02-08] MEDS: INSULIN ASPART [NOVOLOG] 3 ML PEN SC SCH ×2 (07:50→11:40)
[2017-02-08 08:30] VITALS: BP 167/76; RESP 19
[2017-02-08] MEDS: ASPIRIN 81 MG TAB PO SCH (09:01)
[2017-02-08] MEDS: LORATADINE 10 MG TAB PO SCH (09:02)
[2017-02-08] MEDS: GABAPENTIN 100 MG CAP PO SCH (09:02)
[2017-02-08] MEDS: SENNA/DOCUSATE NA (8.6MG/50MG) TAB PO SCH (09:02)
[2017-02-08] MEDS: LINAGLIPTIN 5 MG TABLET PO SCH (09:02)
[2017-02-08] MEDS: VERAPAMIL (SR) 180 MG TAB PO SCH (09:02)
[2017-02-08] MEDS: DULOXETINE 30 MG CAP DR PO SCH (09:02)
[2017-02-08] MEDS ORDERED: INSULIN ASPART [NOVOLOG] 3 ML PEN SC SCH (11:40)
[2017-02-08] MEDS ORDERED: NOVO3I SC ×2 (13:41)
[2017-02-08] MEDS ORDERED: LINA5TAB PO (13:41)
[2017-02-08] MEDS ORDERED: LANT3I SC (13:41)
--- NOTE | 2017-02-08 13:45 | CONS ---
Date/Time of Note Date/Time of Note DATE: 02/08/17 TIME: 13:42 Assessment/Plan Assessment/Plan Problems: (1) Fibromyalgia Status: Chronic Comment: Cont. duloxetine, gabapentin (2) Hyperlipidemia Status: Chronic Comment: Cont. statin (3) Restless leg syndrome Status: Chronic Comment: Cont. pramipexole (4) Allergic rhinitis Status: Chronic Comment: Cont. antihistamine (5) Essential (primary) hypertension Status: Chronic Comment: Cont. verapamil (6) Chronic pain disorder Status: Chronic Comment: Cont. gabapentin, duloxetine (7) Type 2 diabetes mellitus with hyperglycemia Status: Chronic Comment: Good control but has been low. Decrease lantus to 14 units and increase Novolog from 5 to 7 units qac Qualifiers: Diabetes mellitus terminal makeup operator insulin use: with half-way use Qualified Code : E11.65 - Type 2 diabetes mellitus with hyperglycemia, with long-term current use of insulin (8) Status post reverse arthroplasty of right shoulder Status: Acute Comment: Doing well. Ready for transfer to SNF. Consultation Date/Type/Reason Admit Date/Time Feb 04, 2017 at 10:01 Initial Consult Date 02/05/17 Type of Consultation: Med/Endo Reason for Consultation Medical and Diabetes management Referring Provider: JEREMIAH CURRAN MD 24 HR Interval Summary Constitutional: improved, no complaints Detailed Summary Respiratory: no complaints Cardiovascular: no complaints Gastrointestinal: no complaints Genitourinary: no complaints Musculoskeletal: no complaints Neurologic: no complaints Exam/Review of Systems Vital Signs Vitals VS - Last 72 Hours, by Label Date Time Temp Pulse Resp B/P Pulse Ox O2 Delivery O2 Flow Rate FiO2 02/08/17 08:30 98.4 75 19 167/76 95 02/08/17 02:18 97.8 73 18 154/71 96 02/08/17 00:19 2.0 02/07/17 20:50 2.0 02/07/17 20:40 98.1 70 18 110/59 93 02/07/17 19:10 2.0 02/07/17 14:03 98.7 57 20 107/57 96 02/07/17 07:48 98.3 74 20 160/76 96 02/07/17 06:07 2.0 27 02/07/17 01:34 97.8 78 18 128/74 98 Nasal Cannula 2.0 02/07/17 00:22 96 2.0 27 02/06/17 20:29 98.4 72 18 140/70 99 Nasal Cannula 2.0 02/06/17 20:12 Nasal Cannula 2.0 02/06/17 20:10 98.4 78 22 147/69 97 02/06/17 16:34 97.9 68 18 128/66 97 02/06/17 14:00 74 18 145/84 94 Room Air 02/06/17 13:00 74 18 144/68 93 Room Air 02/06/17 12:00 80 02/06/17 12:00 98.0 79 20 131/61 93 Room Air 02/06/17 11:00 72 12 176/89 99 Room Air 02/06/17 10:00 67 13 155/101 95 Room Air 02/06/17 09:00 69 14 148/91 98 Room Air 02/06/17 08:00 98.1 74 24 158/83 96 Room Air 02/06/17 08:00 75 02/06/17 07:00 73 13 124/71 95 Room Air 02/06/17 06:00 65 14 135/81 94 Room Air 02/06/17 05:19 76 14 139/83 95 Room Air 02/06/17 05:00 75 19 169/87 95 Room Air 02/06/17 04:00 75 02/06/17 04:00 97.9 84 18 162/74 98 Room Air 02/06/17 03:00 83 19 162/92 95 Nasal Cannula 4.0 02/06/17 02:53 86 20 146/70 95 Nasal Cannula 4.0 02/06/17 02:00 85 23 152/101 97 Nasal Cannula 4.0 02/06/17 01:00 84 20 130/113 97 Nasal Cannula 4.0 02/06/17 00:00 98.7 85 30 148/72 96 Nasal Cannula 4.0 02/06/17 00:00 88 02/05/17 23:00 89 24 158/104 98 Nasal Cannula 4.0 02/05/17 22:25 4.0 02/05/17 22:00 88 19 150/76 96 Nasal Cannula 4.0 02/05/17 21:00 92 24 160/81 95 Nasal Cannula 4.0 02/05/17 20:00 98.9 92 18 157/79 95 Nasal Cannula 4.0 02/05/17 20:00 96 02/05/17 19:00 91 22 134/78 96 Nasal Cannula 4.0 02/05/17 16:19 96 4.0 02/05/17 16:19 98.9 93 21 133/66 96 Nasal Cannula 4.0 02/05/17 16:00 94 02/05/17 15:30 93 21 136/66 97 Nasal Cannula 4.0 02/05/17 15:00 91 19 119/69 95 Nasal Cannula 4.0 02/05/17 14:17 99 27 151/75 95 Nasal Cannula 4.0 02/05/17 13:50 100 18 98 35 Vital Signs Date Time Temp Pulse Resp B/P Pulse Ox O2 Delivery O2 Flow Rate FiO2 02/08/17 08:30 98.4 75 19 167/76 95 02/08/17 00:19 2.0 02/07/17 06:07 27 02/07/17 01:34 Nasal Cannula Intake and Output 02/07/17 02/07/17 02/08/17 15:00 23:00 07:00 Intake Total 800 ml 840 ml Output Total 1000 ml Balance 800 ml -160 ml Exam Constitutional: alert, obese, oriented Psych: nl mood/affect, no complaints Respiratory: clear to auscultation, normal air movement Cardiovascular: edema (1+ BLE5), nl pulses, regular rate and rhythm, No murmurs/extra sounds, No rub Gastrointestinal: bowel sounds, nl liver, spleen, non-tender, soft, No mass, No rebound or guarding Musculoskeletal: nl extremities to inspection Extremities: edema (1+ BLE), normal pulses, No clubbing, No cyanosis Neurological: ENTRY LEVEL ACCOUNT REPRESENTATIVE II-XII intact, nl mental status, nl speech, nl strength Additional Comments Bedside Glucose - 72 Hours Test 02/05/17 13:47 02/05/17 15:21 02/05/17 16:04 02/05/17 17:02 Bedside Glucose 97mg/dL (70-220) 120mg/dL (70-220) 123mg/dL (70-220) 124mg/dL (70-220) Test 02/05/17 18:13 02/05/17 19:02 02/05/17 20:09 02/05/17 21:04 Bedside Glucose 103mg/dL (70-220) 107mg/dL (70-220) 139mg/dL (70-220) 130mg/dL (70-220) Test 02/05/17 21:56 02/05/17 22:57 02/05/17 23:59 02/06/17 02:39 Bedside Glucose 120mg/dL (70-220) 107mg/dL (70-220) 113mg/dL (70-220) 106mg/dL (70-220) Test 02/06/17 06:11 02/06/17 08:52 02/06/17 09:20 02/06/17 12:22 Bedside Glucose 73mg/dL (70-220) 65mg/dL (70-220) L 143mg/dL (70-220) 119mg/dL (70-220) Test 02/06/17 17:44 02/06/17 20:41 02/07/17 09:04 02/07/17 12:48 Bedside Glucose 108mg/dL (70-220) 102mg/dL (70-220) 115mg/dL (70-220) 96mg/dL (70-220) Test 02/07/17 18:13 02/07/17 20:26 02/08/17 09:03 02/08/17 12:31 Bedside Glucose 135mg/dL (70-220) 103mg/dL (70-220) 130mg/dL (70-220) 126mg/dL (70-220) Results Result Diagram: 02/06/17 0445 02/06/17 0445 Results 24 hrs Laboratory Tests Test 02/07/17 18:13 02/07/17 20:26 02/08/17 09:03 02/08/17 12:31 Bedside Glucose 135 103 130 126 Medications Medications Current Medications Senna/Docusate Sodium (Senokot-S) 1 tab BID PO Last administered on 02/08/17 09:02; Admin Dose 1 TAB; Start 02/04/17 at 21:00 Simethicone (Mylicon) 80 mg TID PRN PO DISTENSION/GAS/BLOATING; Start 02/04/17 at 14:30 Magnesium Hydroxide (Milk Of Mag) 30 ml BID PRN PO CONSTIPATION Last administered on 02/07/17 19:03; Admin Dose 30 ML; Start 02/04/17 at 14:30 Acetaminophen (Tylenol Tab) 1,000 mg Q4H PRN PO TEMP GREATER THAN 100.4F; Start 02/04/17 at 14:30 Oxycodone/ Acetaminophen (Percocet (5/ 325)) 1 tab Q4H PRN PO PAIN LEVEL 1-5 Last administered on 02/08/17 04:27; Admin Dose 1 TAB; Start 02/04/17 at 14:30 Oxycodone/ Acetaminophen (Percocet (5/ 325)) 2 tab Q4H PRN PO PAIN LEVEL 6-10 Last administered on 02/08/17 09:24; Admin Dose 2 TAB; Start 02/04/17 at 14:30 Morphine Sulfate (morphine) 2 mg Q2H PRN IV PAIN LEVEL 1-5; Start 02/04/17 at 14:30 Morphine Sulfate (morphine) 4 mg Q4H PRN IV PAIN LEVEL 6-10 Last administered on 02/05/17 02:05; Admin Dose 4 MG; Start 02/04/17 at 14:30 Ondansetron HCl (Zofran Inj) 4 mg Q6H PRN IV NAUSEA AND/OR VOMITING; Start 02/04/17 at 14:30 Diphenhydramine HCl (Benadryl) 25 mg Q6H PRN IV PRURITUS; Start 02/04/17 at 14: 30 Dextrose (D50w Syringe) 25 ml Q15M PRN IV Till BS 80 mg/dL or above x2 Last administered on 02/06/17 09:14; Admin Dose 25 ML; Start 02/04/17 at 17:30 Dextrose (D50w Syringe) 50 ml Q15M PRN IV Till BS 80 mg/dL or above x2; Start 02/04/17 at 17:30 Aspirin (Aspirin) 81 mg DAILY PO Last administered on 02/08/17 09:01; Admin Dose 81 MG; Start 02/06/17 at 09:00 Atorvastatin Calcium (Lipitor) 10 mg QHS PO Last administered on 02/07/17 20: 29; Admin Dose 10 MG; Start 02/05/17 at 21:00 Duloxetine HCl (Cymbalta) 60 mg DAILY PO Last administered on 02/08/17 09:02 ; Admin Dose 60 MG; Start 02/06/17 at 09:00 Gabapentin (Neurontin) 200 mg BID PO Last administered on 02/08/17 09:02; Admin Dose 200 MG; Start 02/05/17 at 21:00 Loratadine (Claritin) 10 mg DAILY PO Last administered on 02/08/17 09:02; Admin Dose 10 MG; Start 02/06/17 at 09:00 Pramipexole (Mirapex) 0.125 mg HS PO Last administered on 02/07/17 20:29; Admin Dose 0.125 MG; Start 02/05/17 at 21:00 Diagnostic Test (Pha) (Accu-Chek) 1 ea 02 XX ; Start 02/06/17 at 02:00 Pantoprazole (Protonix Tab) 40 mg DAILY@06 PO Last administered on 02/08/17 05:05; Admin Dose 40 MG; Start 02/06/17 at 06:00 Verapamil HCl (Isoptin Sr) 180 mg BID PO Last administered on 02/08/17 09:02 ; Admin Dose 180 MG; Start 02/05/17 at 21:00 Linagliptin (Tradjenta) 5 mg DAILY PO Last administered on 02/08/17 09:02; Admin Dose 5 MG; Start 02/06/17 at 09:00 Insulin Glargine (Lantus) 14 unit DAILY@20 SC ; Start 02/08/17 at 20:00 CARLY JIN MD Feb 08, 2017 13:45
[2017-02-08] MEDS ORDERED: INSULIN GLARGINE [LANtus] 3 ML PEN SC SCH (20:00)
== END 2017-02-08 16:15 | DRG 483 ==
LOC: REC 10:01 → ICU 17:00 → MS1 02-06 14:43
PROVIDERS: ADMIT Orthopaedic Surgery; ATTEND Orthopaedic Surgery
PROC: 0RRJ0J6 Replacement of Right Shoulder Joint with Synthetic Substitute, Humeral Surface, Open Approach (ICD-10-PCS; 2017-02-04)
PROC: 0RPJ0JZ Removal of Synthetic Substitute from Right Shoulder Joint, Open Approach (ICD-10-PCS; 2017-02-04)
PROC: 5A1945Z Respiratory Ventilation, 24-96 Consecutive Hours (ICD-10-PCS; 2017-02-04)
PROC: 0BH17EZ Insertion of Endotracheal Airway into Trachea, Via Natural or Artificial Opening (ICD-10-PCS; principal; 2017-02-04 12:00)
DX: T84.028A Dislocation of other internal joint prosthesis, initial encounter (principal); J95.821 Acute postprocedural respiratory failure; E11.40 Type 2 diabetes mellitus with diabetic neuropathy, unspecified; E11.65 Type 2 diabetes mellitus with hyperglycemia; M25.511 Pain in right shoulder; I10 Essential (primary) hypertension; E78.5 Hyperlipidemia, unspecified; M79.7 Fibromyalgia; G47.00 Insomnia, unspecified; E55.9 Vitamin D deficiency, unspecified; Z96.611 Presence of right artificial shoulder joint; G25.81 Restless legs syndrome; G89.4 Chronic pain syndrome; Y83.8 Other surgical procedures as the cause of abnormal reaction of the patient, or of later complication, without mention of misadventure at the time of the procedure; Y92.029 Unspecified place in mobile home as the place of occurrence of the external cause; Z91.14 Patient's other noncompliance with medication regimen; Z79.4 Long term (current) use of insulin; Z79.84 Long term (current) use of oral hypoglycemic drugs; Z87.891 Personal history of nicotine dependence
CPT/HCPCS: 36600; 71010; 80048; 80053; 80061; 82803; 82962; 83036; 83735; 84100; 84443; 85025; 86999; 87081; 88300; 94002; 94003; 94770; 94799; 97116; 97163; 97530; J0171; J0735; J1100; J1200; J1815; J1885; J2060; J2250; J2270; J2274; J2405; J2765; J2795; J3010; J3370; J3480